=== PATIENT | male | born 1955 | race Caucasian/White ===

== ENCOUNTER → 2022-07-14 | Outpatient (CLI) | payer MEDICARE ==
[~2022-07-14] MED LIST: REGADENOSON 0.4 MG/5 ML SYRINGE IV ONE
--- NOTE | 2022-07-14 17:07 | NM ---
EXAMINATION TYPE: NM stress lexiscan cardiolite DATE OF EXAM: 07/14/2022 COMPARISON: NONE HISTORY: Atrioventricular block TECHNIQUE: After the intravenous administration of 9.9 mCi Tc 99m Sestamibi - Cardiolite resting SPE CT images acquired 55 minutes post injection. At peak stress 25.6 mCi Tc 99m Sestamibi - Stress images obtained 40 minutes post injection The patient was stressed on the treadmill. FINDINGS: There may be a small fixed defect along the inferior lateral wall adjacent to the cardiac apex. This correlates with the polar maps. Polar maps suggest a small defect within the septal wall at the cardiac apex. This is better visualiz ed on the SPECT stress images. Reversibility is not identified on the polar maps. Polar maps suggest larger defect at this region on the resting images which is not supported by the SPECT imaging. Wall motion is normal Ejection fraction is calculated to be 51 %. IMPRESSION: 1. Small prior infarct may be along the inferolateral wall near the cardiac apex. 2. SPECT imaging suggests some stress-induced ischemic change at the septal wall near the cardiac ape x although polar maps suggest a fixed defect. Correlate with patient's symptoms and EKG changes.
== END | disposition home or self-care (01) ==
LOC: RADNMMAIN 07:27
PROVIDERS: ATTEND Family Medicine
DX: I44.0 Atrioventricular block, first degree (principal)
CPT/HCPCS: 93017; 78452; A9500

== ENCOUNTER 2024-08-26 06:17 | Day surgery (SDC) | payer MEDICARE ==
[~2024-08-26 06:17] MED LIST changes: +LACTATED RINGERS 1,000 ML IV SCH; -REGADENOSON 0.4 MG/5 ML SYRINGE IV ONE
[2024-08-26] MEDS: IV FLUID CONTINUATION 1,000 ML IV ONE (07:26)
[2024-08-26 07:31] VITALS: TEMP 98.2
[2024-08-26 07:35] LABS: Glucose,Whole Blood 149 mg/dL (70-110)
[2024-08-26] MEDS ORDERED: PROPOFOL 10 MG/ML 20 ML VIAL IV ONE (07:48)
[2024-08-26] MEDS ORDERED: SUCCINYLCHOLINE CHLORIDE 200 MG/10 ML VIAL IV ONE (07:48)
[2024-08-26] MEDS: ALBUTEROL NEBULIZED 2.5 MG/3 ML INHALATION STA (08:23)
--- NOTE | 2024-08-26 08:56 | XR ---
EXAMINATION TYPE: XR chest 1V portable DATE OF EXAM: 08/26/2024 8:39 AM COMPARISON: None. CLINICAL INDICATION: Male, 69 years old with history of ASPIRATION, TECHNIQUE: XR chest 1V portable view(s) obtained. FINDINGS: The heart size is normal. The pulmonary vasculature is normal. The lungs are clear. IMPRESSION: 1. No acute pulmonary process. [facility], , 08/26/2024 8:54 AM
[2024-08-26] MEDS: ONDANSETRON 4 MG/2 ML VIAL IVP STA (09:01)
[2024-08-26] MEDS: BUDESONIDE 1 MG/2 ML NEBU INHALATION STA (10:36)
[2024-08-26] MEDS: IPRATROPIUM-ALBUTEROL 3 ML NEB INHALATION STA (10:36)
[2024-08-26 11:34] VITALS: BP 104/77; PULSE 97; RESP 18
--- NOTE | 2024-08-26 13:11 | P.OP ---
Date of Procedure: 08/26/24 Preoperative Diagnosis: Screening Colonoscopy Postoperative Diagnosis: Colon Polyp Procedure(s) Performed: Colonoscopy Anesthesia: other (Sedation) Surgeon: Ash Santos Pathology: none sent Condition: stable Disposition: PACU Description of Procedure: After informed consent was obtained, the patient was placed in the left lateral position adequate sedation was given by anesthesia. Monitoring was provided throughout the entire procedure. Digital rectal exam was performed revealing normal sphincter tone and no external hemorrhoids. The colonoscope was inserted into rectum and advanced under direct visualization, without difficulty, to the cecum, the appendiceal orifice, and the ileocecal valve were identified. The quality of the preparation was good. The colonoscope was then withdrawn while carefully examining the mucosa. The colonic mucosa appeared normal with normal vascularity and haustral markings. No masses, AVM/s or diverticula were seen. There was a right sided colon polyp seen. Prior to being able to perfom polypectomy, patient started vomiting and anesthesia request I abort the procedure. The scope was completely withdrawn. Patient will need a repeat colonoscopy.
== END 2024-08-26 11:40 | disposition home or self-care (01) ==
LOC: ORWHC2ENDO 06:17 → 2SICU 08:08 → ORWHC2ENDO 08:08
PROVIDERS: ATTEND Surgery
DX: Z12.11 Encounter for screening for malignant neoplasm of colon (principal); K63.5 Polyp of colon; K91.81 Other intraoperative complications of digestive system; R11.10 Vomiting, unspecified; I10 Essential (primary) hypertension; E78.5 Hyperlipidemia, unspecified; J44.9 Chronic obstructive pulmonary disease, unspecified; E11.9 Type 2 diabetes mellitus without complications; M19.90 Unspecified osteoarthritis, unspecified site; F32.A Depression, unspecified; K21.9 Gastro-esophageal reflux disease without esophagitis; Z79.899 Other long term (current) drug therapy; Z79.85 Long-term (current) use of injectable non-insulin antidiabetic drugs; Z79.82 Long term (current) use of aspirin
CPT/HCPCS: 94640; 94760; 71045; J0330; J2405; J2704; G0121; 45378

== ENCOUNTER 2024-08-30 14:00 | Inpatient (IN) | payer MEDICARE ==
--- NOTE | 2024-08-30 14:37 | ED ---
Abdominal Pain HPI - General Chief Complaint: Abdominal Pain Stated Complaint: Perforated bowel Time Seen by Provider: 08/30/24 14:05 Source: EMS Mode of arrival: EMS Limitations: no limitations - History of Present Illness Initial Comments: 69-year-old male presents emergency department as a transfer from [facility]. Patient had a colonoscopy on August 26. States that soon after the colonoscopy he started having abdominal pain. He has had intermittent nausea with vomiting. Has not held down much food besides some soup. He does admit to liquid stools. He did have bowel movement today. He went into [facility]. Laboratory studies revealed a white count of 19,000. CT was performed which demonstrated free intraperitoneal air with diffusely dilated loops of small bowel with air-fluid levels and possible transition point within the right lower quadrant of the abdomen. Patient was given 2 mg of morphine, dose of Zosyn and transferred to our facility as his surgeon is here - Dr. Santos. - Related Data Home Medications Medication Instructions Recorded Confirmed Albuterol Sulfate [Albuterol 2 puff INHALATION RT-Q4H PRN 08/22/24 08/30/24 Sulfate Hfa] Aspirin [Adult Low Dose Aspirin EC] 81 mg PO DAILY 08/22/24 08/30/24 Atorvastatin [Lipitor] 40 mg PO DAILY 08/22/24 08/30/24 Ergocalciferol [Vitamin D2 (1250 1,250 mcg PO WEEKLY 08/22/24 08/30/24 Mcg = 12126 Iu)] Escitalopram [Lexapro] 10 mg PO DAILY 08/22/24 08/30/24 Esomeprazole Magnesium [NexIUM] 20 mg PO DAILY 08/22/24 08/30/24 Fluticasone Propion/Salmeterol 1 puff INHALATION RT-DAILY 08/22/24 08/30/24 [Wixela 250-50 Inhub] Metoprolol Tartrate [Lopressor] 25 mg PO BID 08/22/24 08/30/24 Montelukast [Singulair] 10 mg PO DAILY 08/22/24 08/30/24 Tiotropium 2.5 Mcg/Puff [Spiriva 2 puff INHALATION RT-DAILY 08/22/24 08/30/24 Respimat 2.5 Mcg] Tirzepatide [Mounjaro] 2.5 mg SQ WEEKLY 08/22/24 08/30/24 allopurinoL 300 mg PO DAILY 08/22/24 08/30/24 lisinopriL [Zestril] 20 mg PO DAILY 08/22/24 08/30/24 Previous Rx's Medication Instructions Recorded Amoxic-Pot Clav 875-125Mg 1 tab PO Q12HR 10 Days #20 tab 09/06/24 [Augmentin 875-125] Fluticasone Propionate 110 Mcg 1 puff INHALATION BID #0 09/06/24 [Flovent 110 Mcg Inhaler] HYDROcodone/APAP 5-325MG [[place] 1 tab PO Q6HR PRN 3 Days #12 tab 09/06/24 5-325] Allergies Allergy/AdvReac Type Severity Reaction Status Date / Time No Known Allergies Allergy Verified 08/30/24 20:45 Review of Systems ROS Statement: Those systems with pertinent positive or pertinent negative responses have been documented in the HPI. ROS Other: All systems not noted in ROS Statement are negative. Past Medical History Past Medical History: Asthma, COPD, Diabetes Mellitus, GERD/Reflux, GI Bleed, Hyperlipidemia, Hypertension, Osteoarthritis (OA) Additional Past Medical History / Comment(s): Perforated bowel Aug 2024, History of Any Multi-Drug Resistant Organisms: None Reported Past Surgical History: Adenoidectomy, Tonsillectomy Additional Past Surgical History / Comment(s): colonoscopy; wisdom teeth removed Past Anesthesia/Blood Transfusion Reactions: No Reported Reaction Additional Past Anesthesia/Blood Transfusion Reaction / Comment(s): no hx blood transfusion Past Psychological History: Depression Smoking Status: Former smoker Past Alcohol Use History: Occasional Past Drug Use History: None Reported General Exam Limitations: no limitations General appearance: alert, in no apparent distress Head exam: Present: atraumatic, normocephalic, normal inspection Eye exam: Present: normal appearance, PERRL, EOMI. Absent: scleral icterus, conjunctival injection, periorbital swelling ENT exam: Present: normal exam, mucous membranes moist Neck exam: Present: normal inspection. Absent: tenderness, meningismus, lympha denopathy Respiratory exam: Present: normal lung sounds bilaterally. Absent: respiratory distress, wheezes, rales, rhonchi, stridor Cardiovascular Exam: Present: regular rate, normal rhythm, normal heart sounds. Absent: systolic murmur, diastolic murmur, rubs, gallop, clicks GI/Abdominal exam: Present: soft, tenderness (rlq pain. abdomen is not peritoneal), normal bowel sounds. Absent: distended, guarding, rebound, rigid Extremities exam: Present: normal inspection, full ROM, normal capillary refill. Absent: tenderness, pedal edema, joint swelling, calf tenderness Back exam: Present: normal inspection Neurological exam: Present: alert, oriented X3, CN II-XII intact Psychiatric exam: Present: normal affect, normal mood Skin exam: Present: warm, dry, intact, normal color. Absent: rash Course Vital Signs 08/30/24 08/30/24 08/30/24 14:02 14:06 15:00 Temperature 98.6 F Pulse Rate 101 H 110 H 107 H Pulse Rate [ Pulse Oximetery ] Respiratory 18 18 8 L Rate Blood Pressure 110/85 122/80 Blood Pressure [Right Arm] O2 Sat by Pulse 92 L 88 L 94 L Oximetry 08/30/24 08/30/24 16:00 16:14 Temperature 97.1 F L Pulse Rate Pulse Rate [ 107 H Pulse Oximetery ] Respiratory 31 H 18 Rate Blood Pressure 109/86 Blood Pressure 112/76 [Right Arm] O2 Sat by Pulse 92 L Oximetry - Reevaluation(s) Reevaluation #1: 08/30/24 14:[address] Pruitt - aware of patients condition and diagnosis Medical Decision Making - Medical Decision Making Was pt. sent in by a medical professional or institution (, PA, SCREEN PRINTING EQUIPMENT SETTER, urgent care, hospital, or skilled nursing...) When possible be specific @ -Sent from [facility] Did you speak to anyone other than the patient for history (EMS, parent, family, police, friend...)? What history was obtained from this source @ -Spoke with physician from the [facility] Did you review nursing and triage notes (agree or disagree)? Why? @ -I reviewed and agree with nursing and triage notes Were old charts reviewed (outside hosp., previous admission, EMS record, old EKG, old radiological studies, urgent care reports/EKG's, skilled nursing records)? Report findings @ -I reviewed the chart from [facility] today Differential Diagnosis (chest pain, altered mental status, abdominal pain women, abdominal pain men, vaginal bleeding, weakness, fever, dyspnea, syncope, headache, dizziness, GI bleed, back pain, seizure, CVA, palpatations, mental health, musculoskeletal)? @ -Differential Abdominal Pain Men: Appendicitis, cholecystitis, diverticulosis, ischemic bowel, pancreatitis, hepatitis, UTI, gastroenteritis, AAA, incarcerated hernia, bowel obstruction, constipation, inflammatory bowel, hepatitis, peptic ulcer disease, splenic infarction, perforated viscus, testicular torsion, this is not meant to be an a ll-inclusive list EKG interpreted by me (3pts min.). @ -Not done X-rays interpreted by me (1pt min.). @ -None done CT interpreted by me (1pt min.). @ -None done U/S interpreted by me (1pt. min.). @ -None done What testing was considered but not performed or refused? (CT, X-rays, U/S, labs)? Why? @ -Chest x-ray and abdominal CT however this was already performed What meds were considered but not given or refused? Why? @ -None Did you discuss the management of the patient with other professionals (professionals i.e. , PA, SCREEN PRINTING EQUIPMENT SETTER, lab, RT, psych nurse, psychotherapist social worker, automotive porter, teacher, community development officer, case advocate)? Give summary @ -Spoke with Dr. Pruitt Was smoking cessation discussed for >3mins.? @ -No Was critical care preformed (if so, how long)? @ -35 minutes for management of pneumoperitoneum which requires immediate OR Were there social determinants of health that impacted care today? How? (Homelessness, low income, unemployed, alcoholism, drug addiction, transportation, low edu. Level, literacy, decrease access to med. care, senior living, rehab)? @ -No Was there de-escalation of care discussed even if they declined (Discuss DNR or withdrawal of care, Hospice)? DNR status @ -No What co-morbidities impacted this encounter? (DM, HTN, Smoking, COPD, CAD, Cancer, CVA, ARF, Chemo, Hep., AIDS, mental health diagnosis, sleep apnea, morbid obesity)? @ -None Was patient admitted / discharged? Hospital course, mention meds given and route, prescriptions, significant lab abnormalities, going to OR and other pertinent info. @ -Upon arrival patient seen and evaluated in room 7. Thorough history and physical exam was performed. I did call and speak with Dr. Pruitt. They do accept the admission. Patient continues to be n.p.o. and will be taken to the OR shortly. Undiagnosed new problem with uncertain prognosis? @ -No Drug Therapy requiring intensive monitoring for toxicity (Heparin, Nitro, Insulin, Cardizem)? @ -No Were any procedures done? @ -No Diagnosis/symptom? @ -Acute abdominal pain, acute pneumoperitoneum Acute, or Chronic, or Acute on Chronic? @ -Acute Uncomplicated (without systemic symptoms) or Complicated (systemic symptoms)? @ -Complicated Side effects of treatment? @ -No Exacerbation, Progression, or Severe Exacerbation? @ -No Poses a threat to life or bodily function? How? (Chest pain, [place], [place], pneumonia, PE, COPD, DKA, ARF, appy, cholecystitis, CVA, Diverticulitis, Homicidal, Suicidal, threat to staff... and all critical care pts) @ -Yes as patient has pneumoperitoneum - Lab Data Result diagrams: 09/06/24 06:09 09/06/24 06:09 Disposition Clinical Impression: Abdominal pain, Pneumoperitoneum Disposition: ADMITTED IP TO THIS [facility] Condition: Stable Is patient prescribed a controlled substance at d/c from ED?: No Time of Disposition: 14:40 Decision to Admit Reason: Admit from EC Decision Date: 08/30/24 Decision Time: 14:40
[2024-08-30] MEDS ORDERED: NALOXONE 0.4 MG/ML 1 ML VIAL IV PRN ×2 (14:40→19:34)
[2024-08-30] MEDS: SODIUM CHLORIDE 0.9% 1,000 ML IV SCH (15:20)
[2024-08-30] MEDS: PIPERACILLIN-TAZOBACTAM 3.375 GM in SODIUM CHLORIDE 0.9% 100 ML IVPB SCH (15:20)
[2024-08-30] MEDS: MORPHINE SULFATE 2 MG/ML SYRINGE IVP ONE (15:21)
[2024-08-30] MEDS: MORPHINE SULFATE 4 MG/ML SYRINGE IV PRN (15:37)
[2024-08-30] MEDS: IV FLUID CONTINUATION 1,000 ML IV ONE ×2 (16:14→16:29)
[2024-08-30] MEDS: ONDANSETRON 4 MG/2 ML VIAL IVP STA (16:31)
[2024-08-30 16:36] LABS: ALT 13 U/L (4-49); African American GFR (CKD) 33 (>60 ml/min/1.73 sqM); Anion Gap 12 mmol/L; Blood Urea Nitrogen 60 mg/dL (9-20); Calcium 8.6 mg/dL (8.4-10.2); Carbon Dioxide 22 mmol/L (22-30); Chloride 103 mmol/L (98-107); Glucose 138 mg/dL (74-99); Non-African American GFR(CKD) 28 (>60 ml/min/1.73 sqM); Sodium 137 mmol/L (137-145); Total Bilirubin 1.4 mg/dL (0.2-1.3)
[2024-08-30 16:38] LABS: Basophils % (A) 0 %; Eosinophils % (A) 0 %; HCT 48.8 % (39.0-53.0); HGB 16.7 gm/dL (13.0-17.5); Lymphocytes # (A) 1.3 k/uL (1.0-4.8); Lymphocytes % (A) 7 %; MCH 32.4 pg (25.0-35.0); MCHC 34.1 g/dL (31.0-37.0); MCV 94.8 fL (80.0-100.0); Mean Platelet Volume 10.5; Monocytes # (A) 0.6 k/uL (0-1.0); Monocytes % (A) 4 %; Neutrophils # (A) 15.8 k/uL (1.3-7.7); Neutrophils % (A) 88 %; Platelet Count 184 k/uL (150-450); RBC 5.15 m/uL (4.30-5.90); RDW 14.1 % (11.5-15.5); WBC 17.9 k/uL (3.8-10.6)
[2024-08-30 16:44] LABS: AST 23 U/L (17-59); Albumin 3.7 g/dL (3.5-5.0); Alkaline Phosphatase 77 U/L (38-126); Potassium 4.5 mmol/L (3.5-5.1); Total Protein 7.1 g/dL (6.3-8.2)
[2024-08-30 16:48] LABS: INR 1.2 (<1.2); Partial Thromboplastin Time 26.3 sec (22.0-30.0); Prothrombin Time 12.8 sec (10.0-12.5)
[2024-08-30 16:51] LABS: ALT 14 U/L (4-49); AST 18 U/L (17-59); African American GFR (CKD) 33 (>60 ml/min/1.73 sqM); Albumin 3.6 g/dL (3.5-5.0); Albumin/Globulin Ratio 1.1; Alkaline Phosphatase 81 U/L (38-126); Anion Gap 11 mmol/L; Blood Urea Nitrogen 62 mg/dL (9-20); Calcium 8.7 mg/dL (8.4-10.2); Carbon Dioxide 22 mmol/L (22-30); Chloride 105 mmol/L (98-107); Globulin 3.3 g/dL; Glucose 140 mg/dL (74-99); Non-African American GFR(CKD) 28 (>60 ml/min/1.73 sqM); Potassium 4.2 mmol/L (3.5-5.1); Sodium 138 mmol/L (137-145); Total Bilirubin 1.2 mg/dL (0.2-1.3); Total Protein 6.9 g/dL (6.3-8.2)
[2024-08-30] MEDS ORDERED: ROCURONIUM 10 MG/ML (5 ML VIAL) IV ONE (17:24)
[2024-08-30] MEDS ORDERED: PHENYLEPHRINE 10 MG/ML VIAL ONE (17:24)
[2024-08-30] MEDS ORDERED: fentaNYL (PF) 50 MCG/ML 2 ML AMP ONE (17:24)
[2024-08-30] MEDS ORDERED: PROPOFOL 10 MG/ML 20 ML VIAL IV ONE (17:24)
[2024-08-30] MEDS ORDERED: SUCCINYLCHOLINE CHLORIDE 200 MG/10 ML VIAL IV ONE (17:24)
[2024-08-30] MEDS ORDERED: LIDOCAINE 1% INJ 10MG/ML (20 ML MDV) ONE (17:24)
[2024-08-30] MEDS: LACTATED RINGERS 1,000 ML IV ONE ×2 (17:56→18:55)
[2024-08-30 19:30] LABS: Glucose,Whole Blood 136 mg/dL (70-110)
[2024-08-30] MEDS ORDERED: Magnesium Replacement Protocol 1 EACH MISC MISCELLANE PRN (19:34)
[2024-08-30] MEDS ORDERED: Potassium Replacement Protocol 1 EACH MISC MISCELLANE PRN (19:34)
[2024-08-30] MEDS ORDERED: IPRATROPIUM-ALBUTEROL 3 ML NEB INHALATION PRN (19:34)
--- NOTE | 2024-08-30 20:00 | XR ---
EXAMINATION TYPE: XR chest 1V portable DATE OF EXAM: 08/30/2024 7:56 PM COMPARISON: 08/26/2024 CLINICAL INDICATION: Male, 69 years old with history of Tube placement, TECHNIQUE: XR chest 1V portable view(s) obtained. FINDINGS: The heart size is normal. The pulmonary vasculature is normal. Right lower lobe infiltrate has developed. Endotracheal tube tip is 5 cm above the codi. Nasogastric tube transverses the thorax. IMPRESSION: 1. Developing right lower lobe infiltrate. 2. Lines and catheters discussed above [facility], , 08/30/2024 7:58 PM
[2024-08-30 20:14] LABS: Basophils % (A) 0 %; Eosinophils # (A) 0.1 k/uL (0-0.7); Eosinophils % (A) 1 %; HCT 54.6 % (39.0-53.0); HGB 17.6 gm/dL (13.0-17.5); Hypochromasia Slight; Lymphocytes # (A) 1.4 k/uL (1.0-4.8); Lymphocytes % (A) 13 %; MCH 31.3 pg (25.0-35.0); MCHC 32.2 g/dL (31.0-37.0); MCV 97.1 fL (80.0-100.0); Mean Platelet Volume 9.3; Monocytes # (A) 0.3 k/uL (0-1.0); Monocytes % (A) 3 %; Neutrophils # (A) 9.3 k/uL (1.3-7.7); Neutrophils % (A) 83 %; Platelet Count 203 k/uL (150-450); RBC 5.62 m/uL (4.30-5.90); RDW 14.2 % (11.5-15.5); WBC 11.2 k/uL (3.8-10.6)
[2024-08-30 20:16] LABS: ABG Base Excess -5.3 mmol/L; ABG HCO3 22 mmol/L (21-25); ABG Oxygen Saturation 97.5 % (94-97); ABG PCO2 47 mmHg (35-45); ABG PH 7.27 (7.35-7.45); ABG PO2 112 mmHg (83-108); ABG TCO2 23 mmol/L (19-24); Allen Test Performed? Yes
[2024-08-30 20:23] LABS: African American GFR (CKD) 37 (>60 ml/min/1.73 sqM); Anion Gap 11 mmol/L; Blood Urea Nitrogen 59 mg/dL (9-20); Calcium 7.9 mg/dL (8.4-10.2); Carbon Dioxide 16 mmol/L (22-30); Chloride 111 mmol/L (98-107); Glucose 150 mg/dL (74-99); Magnesium 1.7 mg/dL (1.6-2.3); Non-African American GFR(CKD) 32 (>60 ml/min/1.73 sqM); Potassium 3.9 mmol/L (3.5-5.1); Sodium 138 mmol/L (137-145)
[2024-08-30] MEDS: CHLORHEXIDINE GLUCONATE 15 ML CUP MUCOUS MEM SCH (20:38)
[2024-08-30] MEDS: LACTATED RINGERS 1,000 ML IV SCH (20:38)
[2024-08-31] MEDS: metroNIDAZOLE-NS PMX 500 MG in SALINE 1 100ML.BAG IVPB SCH (00:05)
[2024-08-31 00:08] LABS: Glucose,Whole Blood 133 mg/dL (70-110)
--- NOTE | 2024-08-31 03:35 | P.PN ---
Progress Note - Text Progress Note Date: 08/31/24 Patient Seen and Examined. He is intubated and sedated. He is not requiring any pressor support. He is making good urine. VSS General-Intubated and Sedated CVS-RRR Lungs-Mechanical Breath Sounds Abdomen-Abthera Wound Vac In Place, Abdomen is soft 69 year old male POD#1 Exploratory Laparotomy, Ileocecectomy with Bowel left in Discontinuity for Cecal Perforation and Ischemic Bowel - Will Plan to Return to OR for [place]ook Laparotomy Saturday 09/01 - NPO - IV fluids - Zosyn - Scott Catheter with Strict I/O's - Abthera Wound Vac - ICU Care Ash Santos [facility] [phone]
[2024-08-31 04:57] LABS: ABG HCO3 23 mmol/L (21-25); ABG Oxygen Saturation 96.7 % (94-97); ABG PCO2 38 mmHg (35-45); ABG PH 7.39 (7.35-7.45); ABG PO2 86 mmHg (83-108); ABG TCO2 24 mmol/L (19-24); Allen Test Performed? Yes
[2024-08-31 05:44] LABS: Glucose,Whole Blood 149 mg/dL (70-110)
[2024-08-31 05:50] LABS: Basophils % (A) 0 %; Eosinophils % (A) 0 %; HCT 49.7 % (39.0-53.0); HGB 16.2 gm/dL (13.0-17.5); Lymphocytes # (A) 0.8 k/uL (1.0-4.8); Lymphocytes % (A) 7 %; MCH 31.1 pg (25.0-35.0); MCHC 32.7 g/dL (31.0-37.0); MCV 95.1 fL (80.0-100.0); Mean Platelet Volume 9.8; Monocytes # (A) 0.4 k/uL (0-1.0); Monocytes % (A) 4 %; Neutrophils # (A) 10.7 k/uL (1.3-7.7); Neutrophils % (A) 88 %; Platelet Count 217 k/uL (150-450); RBC 5.23 m/uL (4.30-5.90); RDW 14.8 % (11.5-15.5); WBC 12.1 k/uL (3.8-10.6)
[2024-08-31 06:28] LABS: African American GFR (CKD) 37 (>60 ml/min/1.73 sqM); Anion Gap 10 mmol/L; Blood Urea Nitrogen 60 mg/dL (9-20); Calcium 8.1 mg/dL (8.4-10.2); Carbon Dioxide 22 mmol/L (22-30); Chloride 106 mmol/L (98-107); Glucose 160 mg/dL (74-99); Non-African American GFR(CKD) 32 (>60 ml/min/1.73 sqM); Potassium 4.3 mmol/L (3.5-5.1); Sodium 138 mmol/L (137-145)
--- NOTE | 2024-08-31 08:07 | XR ---
EXAMINATION TYPE: XR chest 1V portable DATE OF EXAM: 08/31/2024 5:14 AM COMPARISON: 08/30/2024 CLINICAL INDICATION: Male, 69 years old with history of Tube placement, TECHNIQUE: XR chest 1V portable view(s) obtained. FINDINGS: The heart size is normal. The pulmonary vasculature is normal. Minimal infiltrate may be at the right diaphragm. This is improved from comparison. Endotracheal tube tip 6 cm above the codi. Nasogastric tube transverses the thorax IMPRESSION: 1. Minimal improving right lower lobe infiltrate [facility], , 08/31/2024 8:05 AM
[2024-08-31] MEDS: FUROSEMIDE 10 MG/ML 4 ML VIAL IV STA (08:34)
[2024-08-31] MEDS: PANTOPRAZOLE 40 MG/10 ML VIAL IVP SCH (09:04)
[2024-08-31 11:42] LABS: Glucose,Whole Blood 159 mg/dL (70-110)
--- NOTE | 2024-08-31 11:42 | OP ---
OPERATIVE REPORT DATE OF SERVICE : PROCEDURE PERFORMED: Placement of a right radial arterial line. PREOPERATIVE DIAGNOSIS: Acute surgical abdomen. POSTOPERATIVE DIAGNOSIS: Acute surgical abdomen. ANESTHESIA USED: None deployed. ROUGH CARPENTER: Tate Antonio MD/Internal Medicine Resident. DESCRIPTION OF PROCEDURE: The patient was placed in the supine position, the right wrist was prepared in a sterile fashion. Drapes were applied. The right radial artery was palpated, cannulated, a guidewire was placed. A Cook's catheter inserted over the guidewire, and the guidewire was removed. Good blood flow, good waveform, no complications. Line was secured using 3.0 silk sutures. MMODL / IJN: [id number] /
--- NOTE | 2024-08-31 12:42 | P.CNPUL ---
History of Present Illness Consult date: 08/31/24 Requesting physician: Ash Santos Reason for consult: other Chief complaint: Abdominal pain History of present illness: This is a 69-year-old white male with a known history of multiple medical problems including GERD, dyslipidemia hypertension and degenerative joint disease, patient had a recent screening colonoscopy on 08/26/2024 which was reported as normal except for a right colonic polyp that could not be removed mostly because the patient started having the nausea and vomiting during the procedure which had to be aborted and the surgeon felt that the procedure should be done again at a later date. Patient was discharged home, and he presented yesterday to [facility] emergency room complaining of abdominal pain nausea and vomiting. Patient could not hold any food down. He had mostly liquid stools. Patient was noted to have leukocytosis, CT of the abdomen pelvis showed free intraperitoneal air with diffusely dilated loops of small bowel with air-fluid levels consistent with acute pneumoperitoneum/acute surgical abdomen. Patient was transferred to [facility], and he was seen by surgery on consultation. Underwent exploratory laparotomy right hemicolectomy and the plan is to go back to have another look tomorrow. Patient was admitted to the ICU on mechanical ventilation last night, and I was asked to see him in consultation. He is now on assist-control rate of 20 tidal volume 500 FiO2 was 70% and PEEP was 5 however after reviewing ABG I cut down FiO2 to 60% and PEEP increased to 8. ABG on 70% showed a pO2 of 86 pCO2 38 pH of 7.39. Reviewing the chart, there is no surgical operative report on this patient, but based on the note/progress note, patient had cecal perforation with ischemia and he underwent exploratory laparotomy, ileocecectomy with bowel left in discontinue OT, and a wound VAC was placed, the plan is to have another look tomorrow into the abdominal cavity. Patient is on LR 125 cc/h he is also on propofol at 40 mcg/kg/min he had a temp of 102.7 last night, on antibiotics in the form of Flagyl and Zosyn. Chest x-ray showed mild pulmonary edema and the patient received Lasix 40 mg IV push x 1.WBC count today is 12.1 hemoglobin is 16.2, basic metabolic profile is normal however BUN is 60 and creatinine 2.07 baseline creatinine on admission was 2.30. Review of Systems ROS unobtainable: due to endotracheal tube Past Medical History Past Medical History: Asthma, COPD, Diabetes Mellitus, GERD/Reflux, GI Bleed, Hyperlipidemia, Hypertension, Osteoarthritis (OA) Additional Past Medical History / Comment(s): Perforated bowel Aug 2024, History of Any Multi-Drug Resistant Organisms: None Reported Past Surgical History: Adenoidectomy, Tonsillectomy Additional Past Surgical History / Comment(s): colonoscopy; wisdom teeth removed Past Anesthesia/Blood Transfusion Reactions: No Reported Reaction Additional Past Anesthesia/Blood Transfusion Reaction / Comment(s): no hx blood transfusion Past Psychological History: Depression Additional Psychological History / Comment(s): 2 yrs ago Smoking Status: Former smoker Past Alcohol Use History: Occasional Additional Past Alcohol Use History / Comment(s): smoked about 1 1/2-2 ppd x 50 yrs - quit 5 yrs ago; drinks about 3 beers once a week; pt states used to drink daily- about a case (24) weekly; advised no alcohol 24 hrs prior to proc. Past Drug Use History: None Reported Medications and Allergies Home Medications Medication Instructions Recorded Confirmed Type Albuterol Sulfate [Albuterol 2 puff INHALATION RT-Q4H PRN 08/22/24 08/30/24 History Sulfate Hfa] Aspirin [Adult Low Dose Aspirin EC] 81 mg PO DAILY 08/22/24 08/30/24 History Atorvastatin [Lipitor] 40 mg PO DAILY 08/22/24 08/30/24 History Ergocalciferol [Vitamin D2 (1250 1,250 mcg PO WEEKLY 08/22/24 08/30/24 History Mcg = 80845 Iu)] Escitalopram [Lexapro] 10 mg PO DAILY 08/22/24 08/30/24 History Esomeprazole Magnesium [NexIUM] 20 mg PO DAILY 08/22/24 08/30/24 History Fluticasone Propion/Salmeterol 1 puff INHALATION RT-DAILY 08/22/24 08/30/24 History [Wixela 250-50 Inhub] Fluticasone Propionate 110 Mcg 1 puff INHALATION DIRECTED 08/22/24 08/30/24 History [Flovent 110 Mcg Inhaler] Metoprolol Tartrate [Lopressor] 25 mg PO BID 08/22/24 08/30/24 History Montelukast [Singulair] 10 mg PO DAILY 08/22/24 08/30/24 History OXcarbazepine 300 mg PO HS 08/22/24 08/30/24 History Tiotropium 2.5 Mcg/Puff [Spiriva 2 puff INHALATION RT-DAILY 08/22/24 08/30/24 History Respimat 2.5 Mcg] Tirzepatide [Mounjaro] 2.5 mg SQ WEEKLY 08/22/24 08/30/24 History allopurinoL 300 mg PO DAILY 08/22/24 08/30/24 History lisinopriL [Zestril] 20 mg PO DAILY 08/22/24 08/30/24 History Allergies Allergy/AdvReac Type Severity Reaction Status Date / Time No Known Allergies Allergy Verified 08/30/24 20:45 Physical Exam Vitals: Vital Signs Temp Pulse Pulse Pulse Resp BP BP 08/31/24 12:00 105 H 105 H 20 97/77 08/31/24 11:12 08/31/24 11:00 103 H 20 103/76 08/31/24 10:00 102 H 20 89/72 08/31/24 09:00 101 H 20 113/65 08/31/24 08:32 08/31/24 08:00 99.3 F 100 100 20 106/76 08/31/24 07:54 08/31/24 07:00 101 H 20 104/66 08/31/24 06:00 100 20 104/71 08/31/24 05:00 98 20 93/66 08/31/24 04:19 08/31/24 04:00 98 20 97/67 08/31/24 03:34 08/31/24 03:00 97 20 92/64 08/31/24 02:00 100 20 97/72 08/31/24 01:00 99 20 108/79 08/31/24 00:25 98 20 100/73 08/31/24 00:16 08/31/24 00:00 98.8 F 98 20 100/76 08/30/24 23:00 98 20 97/79 08/30/24 22:00 98 20 102/81 08/30/24 21:00 102 H 22 135/89 08/30/24 20:31 08/30/24 20:27 08/30/24 20:00 100.2 F H 103 H 20 133/91 08/30/24 19:39 08/30/24 19:30 08/30/24 17:00 106/84 08/30/24 16:14 97.1 F L 107 H 18 112/76 08/30/24 16:00 31 H 109/86 08/30/24 15:00 107 H 8 L 122/80 08/30/24 14:06 110 H 18 08/30/24 14:02 98.6 F 101 H 18 110/85 Pulse Ox FiO2 08/31/24 12:00 95 50 08/31/24 11:12 50 08/31/24 11:00 08/31/24 10:00 08/31/24 09:00 94 L 60 08/31/24 08:32 60 08/31/24 08:00 96 70 08/31/24 07:54 70 08/31/24 07:00 96 08/31/24 06:00 95 08/31/24 05:00 95 08/31/24 04:19 70 08/31/24 04:00 96 70 08/31/24 03:34 70 08/31/24 03:00 96 08/31/24 02:00 95 08/31/24 01:00 95 08/31/24 00:25 94 L 08/31/24 00:16 70 08/31/24 00:00 96 70 08/30/24 23:00 95 08/30/24 22:00 94 L 08/30/24 21:00 94 L 70 08/30/24 20:31 70 08/30/24 20:27 70 08/30/24 20:00 97 80 08/30/24 19:39 80 08/30/24 19:30 97 08/30/24 17:00 08/30/24 16:14 92 L 08/30/24 16:00 08/30/24 15:00 94 L 08/30/24 14:06 88 L 08/30/24 14:02 92 L Intake and Output 08/30/24 08/31/24 08/31/24 22:59 06:59 14:59 Intake Total 3749.025 2221.375 635.794 Output Total 889 083 4856 Balance 2939.527 6803.375 -414.206 Intake: IV 1825 1600 534 Lactated Ringers 1,000 ml 125 1000 425 @ 75 mls/hr IV .[id number] MARII Rx#:[id number] Pressure bag 9 metroNIDAZOLE-NS PMX 500 600 100 mg In Saline 1 100ml.bag @ 100 mls/hr IVPB Q8HR MARII Rx#:[id number] Intake, IV Titration 9.724 259.375 101.794 Amount propofoL 1,000 mg In 9.724 259.375 101.794 Empty Bag 1 bag @ 15 MCG/ KG/MIN 10.002 mls/hr IV . Q10H MARII Rx#:[id number] Output: Drainage 400 Abdomen 400 Urine 130 305 650 Estimated Blood Loss 125 Other: Voiding Method Indwelling Catheter Indwelling Catheter Weight 111.13 kg 107.9 kg ABP, PAP, CO, CI - Last 8 Hours Arterial Blood Pressure 89/57 Arterial Blood Pressure 98/64 Arterial Blood Pressure 108/68 General: Revealed a 69-year-old white male intubated mechanically ventilated Head: Atraumatic, normocephalic, endotracheal tube and orogastric tube are intact. Skin: Skin is warm and dry and no rashes or lesions are noted. Eye: Pupils are equal, round and reactive to light Ears, nose, mouth and throat: There are moist mucous membranes and no oral lesions. Neck: The neck is supple, there is no tenderness or JVD. Cardiovascular: Distant S1-S2, no S3 gallop. Respiratory: Symmetrical chest expansion, diminished breath sounds at the bases minimal crackles at the bases no rhonchi no wheezing Gastrointestinal: Obese, postsurgical, wound VAC is noted. Musculoskeletal: No deformities noted. Could not assess range of motion patient is sedated Neurological: Could not assess, patient is sedated, on propofol Psychiatric: Could not assess Results - Laboratory Findings CBC and BMP: 08/31/24 05:11 08/31/24 05:11 ABG ABG pH 7.39 (7.35-7.45) 08/31/24 05:10 ABG pCO2 38 mmHg (35-45) 08/31/24 05:10 ABG pO2 86 mmHg (83-108) 08/31/24 05:10 ABG O2 Saturation 96.7 % (94-97) 08/31/24 05:10 PT/INR, D-dimer PT 12.8 sec (10.0-12.5) H 08/30/24 16:25 INR 1.2 (<1.2) H 08/30/24 16:25 Abnormal lab findings: Abnormal Labs 08/30/24 08/30/24 08/30/24 15:34 15:34 16:25 WBC 17.9 H Hgb Hct Neutrophils # 15.8 H Lymphocytes # PT 12.8 H INR 1.2 H ABG pH ABG pCO2 ABG pO2 ABG O2 Saturation Hemoglobin Chloride Carbon Dioxide BUN 60 H Creatinine 2.29 H Glucose 138 H POC Glucose (mg/dL) Calcium Total Bilirubin 1.4 H 08/30/24 08/30/24 08/30/24 16:25 19:28 19:52 WBC 11.2 H Hgb 17.6 H Hct 54.6 H Neutrophils # 9.3 H Lymphocytes # PT INR ABG pH ABG pCO2 ABG pO2 ABG O2 Saturation Hemoglobin Chloride Carbon Dioxide BUN 62 H Creatinine 2.30 H Glucose 140 H POC Glucose (mg/dL) 136 H Calcium Total Bilirubin 08/30/24 08/30/24 08/31/24 19:52 20:15 00:07 WBC Hgb Hct Neutrophils # Lymphocytes # PT INR ABG pH 7.27 L ABG pCO2 47 H ABG pO2 112 H ABG O2 Saturation 97.5 H Hemoglobin 17.6 H Chloride 111 H Carbon Dioxide 16 L BUN 59 H Creatinine 2.08 H Glucose 150 H POC Glucose (mg/dL) 133 H Calcium 7.9 L Total Bilirubin 08/31/24 08/31/24 08/31/24 05:11 05:11 05:43 WBC 12.1 H Hgb Hct Neutrophils # 10.7 H Lymphocytes # 0.8 L PT INR ABG pH ABG pCO2 ABG pO2 ABG O2 Saturation Hemoglobin Chloride Carbon Dioxide BUN 60 H Creatinine 2.07 H Glucose 160 H POC Glucose (mg/dL) 149 H Calcium 8.1 L Total Bilirubin 08/31/24 11:40 WBC Hgb Hct Neutrophils # Lymphocytes # PT INR ABG pH ABG pCO2 ABG pO2 ABG O2 Saturation Hemoglobin Chloride Carbon Dioxide BUN Creatinine Glucose POC Glucose (mg/dL) 159 H Calcium Total Bilirubin - Diagnostic Findings Chest x-ray: image reviewed (Bibasilar atelectasis and small bilateral pleural effusions are noted.) Assessment and Plan Assessment: Impression: Status post exploratory laparotomy ileocecectomy, with bowel left in discontinue T for cecal perforation and ischemic bowel, postoperative day #1 Acute hypoxic respiratory failure secondary to above Acute pneumoperitoneum/surgical abdomen requiring surgery as noted above. Acute abdominal sepsis secondary to acute pneumoperitoneum and bowel perforation Recent colonoscopy on 08/26/2024 complicated by nausea vomiting and possible aspiration hence polypectomy could not be performed History of underlying COPD/asthma History of diabetes type 2 Benign essential hypertension Degenerative joint disease History of GERD Acute kidney injury, possible acute tubular necrosis secondary to sepsis and possibly hypotension, baseline creatinine is unknown prior to this admission to the Recommendation: Continue ventilatory support, vent settings were adjusted accordingly, no plans to wean or extubate today since patient is having another surgery tomorrow Patient to have another exploratory laparotomy tomorrow, in the meantime Continue GI DVT prophylaxis Continue hemodynamic support if necessary, for the time being patient is h emodynamically stable not requiring any pressors Continue antibiotics for his abdominal sepsis Continue IV fluids, monitor closely electrolytes and renal profile May have to eventually consider TPN on this patient once done with surgery Resume home meds However hold lisinopril monitor blood sugars and address accordingly Close monitoring of blood sugars and address accordingly use sliding scale co verage Continue bronchodilators including albuterol, DuoNeb, Symbicort. Singulair. Will try to find his baseline PFT if he had one in our institution. Medical service to address his medical issues/admission patient is primarily a patient of Dr. Najera Patient is critically ill, critical care time is over 30 minutes Time with Patient: Greater than 30
[2024-08-31] MEDS ORDERED: DEXTROSE 50% SYRINGE 50 ML IVP PRN ×2 (14:26)
[2024-08-31 17:56] LABS: Glucose,Whole Blood 122 mg/dL (70-110)
[2024-08-31] MEDS: INSULIN ASPART (NovoLOG) 100 UNIT/ML VIAL SQ SCH (19:54)
[2024-08-31 23:05] LABS: Glucose,Whole Blood 135 mg/dL (70-110)
--- NOTE | 2024-09-01 00:34 | P.OP ---
Date of Procedure: 08/30/24 Preoperative Diagnosis: free air Postoperative Diagnosis: colon perforation Procedure(s) Performed: explorator laparotomy with ielocectomy Anesthesia: LIDYA Surgeon: Jerome Du Estimated Blood Loss (ml): 150 Pathology: other (colon/ileum) Condition: stable Disposition: ICU Indications for Procedure: free air Operative Findings: dime-size perforation Description of Procedure: The patient was brought to the operating suite where he was clean and draped in sterile fashion. A timeout was performed, and everyone agreed with the information recited. Next a number 15 blade was used to make a midline incision just above the umbilicus down to the pubic area Electrocautery was used down through the fascia into the Peritoneum. We encountered a large amount of pus and purelent fluid. The small bowel was eviscerated and ran from the cecum to the ligament of Treitz. There was questionable areas of ischemia. Size perforation was found at the cecum. It was actively spilling out succus. This was clamped with a [place]. The white line of todt was mobilize from cephalad to caudad. I was able to identify healthy small 3 cm proximal to the ileocal valve. A hemostat was used to Isolate the small bowel segment and a 60 mm purple staple load was used to transect this area. I then further mobilized the right colon to the hepatic flexure. A 60 mm purple staple load was used to resect this segment. A ligasure device was used to take down the right colon mesentery and was passed off to nursing for pathology. A hemostatic timeout was performed. There was some bleeding in the right upper quadrant which was controlled with surgical powder. I created a ileocolonic anastomosis using multiple 60 mm purple stable loads. A 3-0 silk suture was used to create a crotch stitch. The abdomen was irrigated with greater than 5 L normal. Because of those ischemic areas, we decided to leave an abthera wound vac. The patient was transported to ICU and stable condition.
[2024-09-01 03:46] LABS: Basophils % (A) 0 %; Eosinophils % (A) 0 %; HCT 44.6 % (39.0-53.0); HGB 14.4 gm/dL (13.0-17.5); Lymphocytes # (A) 1.4 k/uL (1.0-4.8); Lymphocytes % (A) 13 %; MCH 30.6 pg (25.0-35.0); MCHC 32.3 g/dL (31.0-37.0); MCV 94.7 fL (80.0-100.0); Mean Platelet Volume 9.9; Monocytes # (A) 0.6 k/uL (0-1.0); Monocytes % (A) 6 %; Neutrophils % (A) 80 %; Platelet Count 185 k/uL (150-450); RBC 4.71 m/uL (4.30-5.90); RDW 14.1 % (11.5-15.5); WBC 11.3 k/uL (3.8-10.6)
[2024-09-01 04:00] LABS: African American GFR (CKD) 41 (>60 ml/min/1.73 sqM); Anion Gap 5 mmol/L; Blood Urea Nitrogen 65 mg/dL (9-20); Calcium 7.9 mg/dL (8.4-10.2); Carbon Dioxide 23 mmol/L (22-30); Chloride 109 mmol/L (98-107); Glucose 144 mg/dL (74-99); Non-African American GFR(CKD) 35 (>60 ml/min/1.73 sqM); Potassium 3.7 mmol/L (3.5-5.1); Sodium 137 mmol/L (137-145)
[2024-09-01] MEDS: POTASSIUM CHLORIDE 10 MEQ in WATER FOR INJECTION 1 100ML.BAG IVPB SCH (04:48)
[2024-09-01 05:43] LABS: ABG Base Excess 1.7 mmol/L; ABG HCO3 26 mmol/L (21-25); ABG Oxygen Saturation 97.2 % (94-97); ABG PCO2 38 mmHg (35-45); ABG PH 7.44 (7.35-7.45); ABG PO2 89 mmHg (83-108); ABG TCO2 27 mmol/L (19-24); Allen Test Performed? Yes
[2024-09-01 05:57] LABS: Glucose,Whole Blood 117 mg/dL (70-110)
[2024-09-01 06:31] LABS: Glucose,Whole Blood 120 mg/dL (70-110)
--- NOTE | 2024-09-01 07:58 | XR ---
EXAMINATION TYPE: XR chest 1V portable DATE OF EXAM: 09/01/2024 6:32 AM COMPARISON: None. CLINICAL INDICATION: Male, 69 years old with history of Tube placement, TECHNIQUE: XR chest 1V portable view(s) obtained. FINDINGS: The heart size is normal. The pulmonary vasculature is normal. The lungs are clear. Endotracheal tube tip is above the codi. Nasogastric tube tip is within the left upper quadrant of the abdomen. IMPRESSION: 1. No acute pulmonary process. 2 lines and catheters discussed above [facility], , 09/01/2024 7:56 AM
[2024-09-01] MEDS ORDERED: fentaNYL (PF) 50 MCG/ML 2 ML AMP ONE (09:07)
[2024-09-01] MEDS ORDERED: MIDAZOLAM 2 MG/2 ML VIAL ONE (09:07)
[2024-09-01] MEDS ORDERED: ROCURONIUM 10 MG/ML (5 ML VIAL) IV ONE (09:07)
[2024-09-01] MEDS ORDERED: HYDROmorphone (PF) 1 MG/ML ONE (09:07)
[2024-09-01] MEDS ORDERED: KETAMINE HCL IN 0.9 % NACL 50 MG/5 ML SYRINGE ONE (09:07)
[2024-09-01] MEDS: SODIUM CHLORIDE 0.9% 400 ML IV ONE (09:11)
--- NOTE | 2024-09-01 10:23 | P.OP ---
Date of Procedure: 09/01/24 Preoperative Diagnosis: Open Abdomen Postoperative Diagnosis: Open Abdomen Procedure(s) Performed: 1. Exploratory Laparotomy 2. Abdominal Washout 3. Abdominal Closure Anesthesia: MAC Surgeon: Ash Santos Pathology: none sent Condition: critical Disposition: ICU Description of Procedure: The patient was brought to the operating suite where he was prepped and draped in usual sterile fashion. A timeout was performed, and everyone agreed with the information recited. The previously placed Abthera Wound Vac was removed. The abdomen was inspected. The previously performed ileocolonic anatomosis was inspected and was noted to be intact and open. The bowel was ran from the ligament of treitz to the anastomosis and there were no areas of bowel that were concerning for ischemia. The colon appeared healthy. The abdomen was then thoroughly irrigated with copious amounts of saline. There was not active bleeding noted. The fascia was then closed in a running fashion with two looped #0 PDS sutures. The skin was approximated with skin lucero. A sterile dressing was applied. This concluded the procedure and the patient was sent back to the ICU in critical condition. The patient's daughter and brother were updated at the conclusion of the procedure.
--- NOTE | 2024-09-01 11:11 | P.CONS ---
History of Present Illness - History of Present Illness This is a pleasant 69 years old male who was transferred from [facility] about 2 days ago for perforated bowel Patient is status post exploratory laparotomy yesterday. Today's postop day #1. Large amount of pus was evacuated and possible evidence of some ischemic bowel. Patient after that was transferred to the critical care unit where he required to be placed on mechanical ventilation. Patient is mildly tachycardic and tachypneic, with respiratory to about 20, blood pressure is borderline. Currently blood pressure 92/56 Patient has mild leukocytosis of 11.3, acute kidney injury improving with creatinine 2.2 down to 1.9 Patient currently currently normal sinus 75 mL/h Also is on Zosyn and Flagyl Active Medications Generic Name Dose Route Start Last Admin Trade Name Freq PRN Reason Stop Dose Admin Albuterol/Ipratropium 3 ml 09/01/24 12:00 Ipratropium-Albuterol 3 Ml Neb INHALATION RT-Q4H MARII Budesonide 1 mg 09/01/24 20:00 Budesonide 1 Mg/2 Ml Nebu INHALATION RT-BID MARII Chlorhexidine Gluconate 15 ml 08/30/24 21:00 08/31/24 20:29 Chlorhexidine Gluconate 15 Ml Cup MUCOUS MEM 15 ml BID MARII Administration Dextrose/Water 25 ml 08/31/24 14:26 Dextrose 50% Syringe 50 Ml IVP PER PROTOCOL PRN Hypoglycemia Protocol Dextrose/Water 50 ml 08/31/24 14:26 Dextrose 50% Syringe 50 Ml IVP PER PROTOCOL PRN Hypoglycemia Protocol Formoterol Fumarate 20 mcg 09/01/24 20:00 Formoterol Fumarate 20 Mcg/2 Ml Nebu INHALATION RT-BID MARII Piperacillin Sod/Tazobactam 100 mls @ 25 mls/hr 08/30/24 20:00 09/01/24 03:18 Sod 3.375 gm/ Sodium Chloride IVPB 25 mls/hr Q8H MARII Administration Protocol Propofol 1,000 mg/ IV Solution 100 mls @ 10.002 mls/hr 08/30/24 19:45 09/01/24 04:57 IV 35 mcg/kg/min .Q10H MARII 23.337 mls/hr Titration Protocol 15 MCG/KG/MIN Lactated Ringer's 1,000 mls @ 75 mls/hr 08/30/24 19:45 09/01/24 03:17 Lactated Ringers IV 75 mls/hr .[id number] MARII Administration Metronidazole 500 mg/ IV 100 mls @ 100 mls/hr 08/31/24 00:00 09/01/24 08:00 Solution IVPB 100 mls/hr Q8HR MARII Administration Protocol Insulin Aspart 0 unit 08/31/24 18:00 09/01/24 06:41 Insulin Aspart (Novolog) 100 Unit/Ml Vial SQ Not Given Q6H MARII Protocol Miscellaneous Information 1 each 08/30/24 19:34 Potassium Replacement Protocol 1 Each Misc MISCELLANE DAILY PRN Per Protocol Miscellaneous Information 1 each 08/30/24 19:34 Magnesium Replacement Protocol 1 Each Misc MISCELLANE DAILY PRN Per Protocol Protocol Morphine Sulfate 4 mg 08/30/24 14:40 09/01/24 00:20 Morphine Sulfate 4 Mg/Ml Syringe IV 4 mg Q4HR PRN Administration Severe Pain (Scale 7 to 10) Naloxone HCl 0.2 mg 08/30/24 14:40 Naloxone 0.4 Mg/Ml 1 Ml Vial IV Q2M PRN Opioid Reversal Pantoprazole Sodium 40 mg 08/31/24 09:00 08/31/24 20:29 Pantoprazole 40 Mg/10 Ml Vial IVP 40 mg BID MARII Administration Review of Systems ROS unobtainable: due to endotracheal tube, due to mental status Past Medical History Past Medical History: Asthma, COPD, Diabetes Mellitus, GERD/Reflux, GI Bleed, Hyperlipidemia, Hypertension, Osteoarthritis (OA) Additional Past Medical History / Comment(s): Perforated bowel Aug 2024, History of Any Multi-Drug Resistant Organisms: None Reported Past Surgical History: Adenoidectomy, Tonsillectomy Additional Past Surgical History / Comment(s): colonoscopy; wisdom teeth removed Past Anesthesia/Blood Transfusion Reactions: No Reported Reaction Additional Past Anesthesia/Blood Transfusion Reaction / Comm: no hx blood transfusion Past Psychological History: Depression Additional Psychological History / Comment(s): 2 yrs ago Smoking Status: Former smoker Past Alcohol Use History: Occasional Additional Past Alcohol Use History / Comment(s): smoked about 1 1/2-2 ppd x 50 yrs - quit 5 yrs ago; drinks about 3 beers once a week; pt states used to drink daily- about a case (24) weekly; advised no alcohol 24 hrs prior to proc. Past Drug Use History: None Reported Medications and Allergies Home Medications Medication Instructions Recorded Confirmed Type Albuterol Sulfate [Albuterol 2 puff INHALATION RT-Q4H PRN 08/22/24 08/30/24 History Sulfate Hfa] Aspirin [Adult Low Dose Aspirin EC] 81 mg PO DAILY 08/22/24 08/30/24 History Atorvastatin [Lipitor] 40 mg PO DAILY 08/22/24 08/30/24 History Ergocalciferol [Vitamin D2 (1250 1,250 mcg PO WEEKLY 08/22/24 08/30/24 History Mcg = 29525 Iu)] Escitalopram [Lexapro] 10 mg PO DAILY 08/22/24 08/30/24 History Esomeprazole Magnesium [NexIUM] 20 mg PO DAILY 08/22/24 08/30/24 History Fluticasone Propion/Salmeterol 1 puff INHALATION RT-DAILY 08/22/24 08/30/24 History [Wixela 250-50 Inhub] Fluticasone Propionate 110 Mcg 1 puff INHALATION DIRECTED 08/22/24 08/30/24 History [Flovent 110 Mcg Inhaler] Metoprolol Tartrate [Lopressor] 25 mg PO BID 08/22/24 08/30/24 History Montelukast [Singulair] 10 mg PO DAILY 08/22/24 08/30/24 History OXcarbazepine 300 mg PO HS 08/22/24 08/30/24 History Tiotropium 2.5 Mcg/Puff [Spiriva 2 puff INHALATION RT-DAILY 08/22/24 08/30/24 History Respimat 2.5 Mcg] Tirzepatide [Mounjaro] 2.5 mg SQ WEEKLY 08/22/24 08/30/24 History allopurinoL 300 mg PO DAILY 08/22/24 08/30/24 History lisinopriL [Zestril] 20 mg PO DAILY 08/22/24 08/30/24 History Allergies Allergy/AdvReac Type Severity Reaction Status Date / Time No Known Allergies Allergy Verified 08/30/24 20:45 Physical Exam Vitals: Vital Signs Temp Pulse Pulse Resp BP Pulse Ox FiO2 09/01/24 08:00 98.6 F 88 20 102/72 95 50 09/01/24 07:43 50 09/01/24 07:30 91 20 100/74 95 09/01/24 07:00 89 20 85/66 94 L 09/01/24 06:30 92 20 103/63 95 09/01/24 06:00 92 20 109/62 95 09/01/24 05:30 89 20 107/70 95 09/01/24 05:00 89 20 96/64 95 09/01/24 04:30 89 20 109/78 96 09/01/24 04:14 50 09/01/24 04:00 98.6 F 86 20 104/72 97 50 09/01/24 03:49 50 09/01/24 03:30 89 20 96 09/01/24 03:00 89 20 104/70 96 09/01/24 02:30 89 20 97/65 96 09/01/24 02:00 90 20 102/70 96 09/01/24 01:30 92 20 102/70 95 09/01/24 01:00 93 20 91/68 95 09/01/24 00:30 92 20 103/69 94 L 09/01/24 00:16 90 20 109/78 93 L 09/01/24 00:14 50 09/01/24 00:00 99.0 F 94 20 105/77 93 L 50 08/31/24 23:30 95 20 105/75 94 L 08/31/24 23:07 50 08/31/24 23:00 95 20 101/79 94 L 08/31/24 22:30 96 20 96/71 95 08/31/24 22:00 98 20 102/75 95 08/31/24 21:30 99 20 98/75 95 08/31/24 21:00 98 20 88/69 95 08/31/24 20:30 102 H 20 97/75 93 L 08/31/24 20:00 100.0 F H 99 20 100/78 94 L 50 08/31/24 19:27 50 08/31/24 19:00 99 20 98/73 94 L 08/31/24 18:00 102 H 20 96/72 96 08/31/24 17:00 105 H 21 90/69 97 08/31/24 16:07 50 08/31/24 16:00 98.0 F 103 H 102 H 20 95/75 96 50 08/31/24 15:00 102 H 20 93/70 95 08/31/24 14:00 102 H 20 95 08/31/24 13:00 103 H 20 94/73 95 50 08/31/24 12:00 105 H 105 H 20 97/77 95 50 08/31/24 11:12 50 08/31/24 11:00 103 H 20 103/76 Intake and Output 08/31/24 09/01/24 09/01/24 22:59 06:59 14:59 Intake Total 4942.069 7526.387 456 Output Total 865 580 185 Balance 166.971 435.387 271 Intake: IV 876 924 456 Lactated Ringers 1,000 ml 600 600 150 @ 75 mls/hr IV .[id number] MARII Rx#:[id number] Piperacillin-Tazobactam 3 150 100 .375 gm In Sodium Chloride 0.9% 100 ml @ 25 mls/hr IVPB Q8H MARII Rx#: [id number] Potassium Chloride 10 meq 100 In Water For Injection 1 100ml.bag @ 100 mls/hr IVPB Q1H MARII Rx#: [id number] Pressure bag 26 24 6 metroNIDAZOLE-NS PMX 500 100 100 mg In Saline 1 100ml.bag @ 100 mls/hr IVPB Q8HR AMRII Rx#:[id number] Intake, IV Titration 155.971 91.387 Amount propofoL 1,000 mg In 155.971 91.387 Empty Bag 1 bag @ 15 MCG/ KG/MIN 10.002 mls/hr IV . Q10H MARII Rx#:[id number] Output: Gastric Drainage 350 150 50 Drainage 100 Abdomen 100 Urine 415 430 125 Estimated Blood Loss 10 Other: Voiding Method Indwelling Catheter Indwelling Catheter Weight 108.1 kg ABP, PAP, CO, CI - Last 8 Hours Arterial Blood Pressure 92/56 Arterial Blood Pressure 106/81 Arterial Blood Pressure 116/68 -GENERAL: The patient is intubated and sedated HEENT: Pupils are round and equally reacting to light. EOMI. No scleral icterus. No conjunctival pallor. Normocephalic, atraumatic. No pharyngeal erythema. No thyromegaly. CARDIOVASCULAR: S1 and S2 present. No murmurs, rubs, or gallops. PULMONARY: Chest is clear to auscultation, no wheezing , no crackles. -ABDOMEN: Soft, nontender, nondistended, normoactive bowel sounds. No palpable organomegaly. Vertical surgical wound closed with dressing in place. JUANCHO drain in place as well MUSCULOSKELETAL: No joint swelling or deformity. EXTREMITIES: No cyanosis, clubbing, or pedal edema. NEUROLOGICAL: Gross neurological examination did not reveal any focal deficits. SKIN: No rashes. no petechiae. Results CBC & Chem 7: 09/01/24 03:35 09/01/24 03:35 Labs: Abnormal Lab Results - Last 24 Hours (Table) 08/31/24 08/31/24 08/31/24 Range/Units 11:40 17:54 23:03 WBC (3.8-10.6) k/uL Neutrophils # (1.3-7.7) k/uL ABG HCO3 (21-25) mmol/L ABG Total CO2 (19-24) mmol/L ABG O2 Saturation (94-97) % Chloride (98-107) mmol/L BUN (9-20) mg/dL Creatinine (0.66-1.25) mg/dL Glucose (74-99) mg/dL POC Glucose (mg/dL) 159 H 122 H 135 H (70-110) mg/dL Calcium (8.4-10.2) mg/dL 09/01/24 09/01/24 09/01/24 Range/Units 03:35 03:35 05:40 WBC 11.3 H (3.8-10.6) k/uL Neutrophils # 9.0 H (1.3-7.7) k/uL ABG HCO3 26 H (21-25) mmol/L ABG Total CO2 27 H (19-24) mmol/L ABG O2 Saturation 97.2 H (94-97) % Chloride 109 H (98-107) mmol/L BUN 65 H (9-20) mg/dL Creatinine 1.91 H (0.66-1.25) mg/dL Glucose 144 H (74-99) mg/dL POC Glucose (mg/dL) (70-110) mg/dL Calcium 7.9 L (8.4-10.2) mg/dL 09/01/24 09/01/24 Range/Units 05:55 06:30 WBC (3.8-10.6) k/uL Neutrophils # (1.3-7.7) k/uL ABG HCO3 (21-25) mmol/L ABG Total CO2 (19-24) mmol/L ABG O2 Saturation (94-97) % Chloride (98-107) mmol/L BUN (9-20) mg/dL Creatinine (0.66-1.25) mg/dL Glucose (74-99) mg/dL POC Glucose (mg/dL) 117 H 120 H (70-110) mg/dL Calcium (8.4-10.2) mg/dL Assessment and Plan Assessment: Acute colonic perforation status post expiratory laparotomy with large pus was evacuated and possible ischemic bowel Intra-abdominal infection secondary to above Altered mental status with metabolic/toxic encephalopathy. Also patient was unable to protect airway and placed on intubation and mechanical ventilation Asthma/COPD, not an active issue Diabetes mellitus Hypertension Hyperlipidemia History of osteoarthritis History of GI bleed GERD COPD/asthma, not an active issue Plan: Continue with antibiotics Zosyn and Flagyl Continue with normal saline IV hydration Follow-up culture results Surgery primary team on the case Critical care team consult, Labs and medication were reviewed.. Continue same treatment. Continue with symptomatic treatment. Resume home medication. Monitor lytes and vitals. DVT and GI prophylaxis. Further recommendations depends on the clinical course of the patient DVT prophylaxis: Herrera mechanical GI Prophylaxis: Protonix Prognosis is guarded
--- NOTE | 2024-09-01 11:25 | P.PN ---
Subjective Progress Note Date: 09/01/24 Principal diagnosis: Acute pneumoperitoneum secondary to cecal perforation This is a 69-year-old white male with a known history of multiple medical problems including GERD, dyslipidemia hypertension and degenerative joint disease, patient had a recent screening colonoscopy on 08/26/2024 which was reported as normal except for a right colonic polyp that could not be removed m ostly because the patient started having the nausea and vomiting during the procedure which had to be aborted and the surgeon felt that the procedure should be done again at a later date. Patient was discharged home, and he presented yesterday to [facility] emergency room complaining of abdominal pain nausea and vomiting. Patient could not hold any food down. He had mostly liquid stools. Patient was noted to have leukocytosis, CT of the abdomen pelvis showed free intraperitoneal air with diffusely dilated loops of small bowel with air-fluid levels consistent with acute pneumoperitoneum/acute surgical abdomen. Patient was transferred to [facility], and he was seen by surgery on consultation. Underwent exploratory laparotomy right hemicolectomy and the plan is to go back to have another look tomorrow. Patient was admitted to the ICU on mechanical ventilation last night, and I was asked to see him in consultation. He is now on assist-control rate of 20 tidal volume 500 FiO2 was 70% and PEEP was 5 however after reviewing ABG I cut down FiO2 to 60% and PEEP increased to 8. ABG on 70% showed a pO2 of 86 pCO2 38 pH of 7.39. Reviewing the chart, there is no surgical operative report on this patient, but based on the note/progress note, patient had cecal perforation with ischemia and he underwent exploratory laparotomy, ileocecectomy with bowel left in discontinue OT, and a wound VAC was placed, the plan is to have another look tomorrow into the abdominal cavity. Patient is on LR 125 cc/h he is also on propofol at 40 mcg/kg/min he had a temp of 102.7 last night, on antibiotics in the form of Flagyl and Zosyn. Chest x-ray showed mild pulmonary edema and the patient received Lasix 40 mg IV push x 1.WBC count today is 12.1 hemoglobin is 16.2, basic metabolic profile is normal however BUN is 60 and creatinine 2.07 baseline creatinine on admission was 2.30. Patient was seen today on 09/01/2024, remains intubated and mechanically ventilated, patient is going back to the OR today around 10 AM. In the meantime the patient is on assist-control rate of 20 tidal volume 500 FiO2 50% and PEEP of 8 ABG showed a pO2 of 89 pCO2 38 pH of 7.44, hence no changes were made in his ventilator settings. Patient is sedated on propofol at 35 mg/kg/min IV fluid is running at 75 cc/h patient remains on Zosyn and Flagyl. No major issues overnight, no hemodynamic instability patient is not requiring any pressors. Patient is not started on any feeding yet, may have to be placed on TPN in the next 24 hours patient is going back to surgery today around 10 AM. Labs today were reviewed WBC count is 11.3 hemoglobin 14.4 basic metabolic profile is normal, renal profile remains abnormal with improvement BUN 65 creatinine 1.91, baseline creatinine is unknown prior to this admission and it was 2.29 on 08/30. Chest x-ray showed no acute pulmonary process improved compared to the chest x-ray done yesterday, patient did receive 1 dose of Lasix yesterday. Objective - Vital Signs Vital signs: Vital Signs Temp 98.6 F 09/01/24 08:00 Pulse 90 09/01/24 11:00 Resp 20 09/01/24 11:00 BP 107/70 09/01/24 11:00 Pulse Ox 92 L 09/01/24 11:00 FiO2 50 09/01/24 10:13 Intake & Output 08/31/24 09/01/24 09/01/24 18:59 06:59 18:59 Intake Total 7273.076 6878.617 555.667 Output Total 2140 880 185 Balance -583.117 515.617 370.667 Weight 108.1 kg Intake: IV 1259 1258 456 Lactated Ringers 1,000 ml 950 825 150 @ 75 mls/hr IV .[id number] MARII Rx#:[id number] Piperacillin-Tazobactam 3 75 200 .375 gm In Sodium Chloride 0.9% 100 ml @ 25 mls/hr IVPB Q8H MARII Rx#: [id number] Potassium Chloride 10 meq 100 In Water For Injection 1 100ml.bag @ 100 mls/hr IVPB Q1H MARII Rx#: [id number] Pressure bag 34 33 6 metroNIDAZOLE-NS PMX 500 200 100 mg In Saline 1 100ml.bag @ 100 mls/hr IVPB Q8HR MARII Rx#:[id number] Intake, IV Titration 297.883 137.617 99.667 Amount propofoL 1,000 mg In 297.883 137.617 99.667 Empty Bag 1 bag @ 15 MCG/ KG/MIN 10.002 mls/hr IV . Q10H MARII Rx#:[id number] Output: Gastric Drainage 650 300 50 Drainage 525 Abdomen 525 Urine 965 580 125 Estimated Blood Loss 10 Other: Voiding Method Indwelling Catheter Indwelling Catheter ABP, PAP, CO, CI - Last Documented Arterial Blood Pressure 90/88 - Exam General: Revealed a 69-year-old white male intubated mechanically ventilated Head: Atraumatic, normocephalic, endotracheal tube and orogastric tube are intact. Skin: Skin is warm and dry and no rashes or lesions are noted. Eye: Pupils are equal, round and reactive to light Ears, nose, mouth and throat: There are moist mucous membranes and no oral lesions. Neck: The neck is supple, there is no tenderness or JVD. Cardiovascular: Distant S1-S2, no S3 gallop. Respiratory: Symmetrical chest expansion, diminished breath sounds at the bases minimal crackles at the bases no rhonchi no wheezing Gastrointestinal: Obese, postsurgical, wound VAC is noted. Musculoskeletal: No deformities noted. Could not assess range of motion patient is sedated Neurological: Could not assess, patient is sedated, on propofol Psychiatric: Could not assess - Labs CBC & Chem 7: 09/01/24 03:35 09/01/24 03:35 Labs: Abnormal Lab Results - Last 24 Hours (Table) 08/31/24 08/31/24 08/31/24 Range/Units 11:40 17:54 23:03 WBC (3.8-10.6) k/uL Neutrophils # (1.3-7.7) k/uL ABG HCO3 (21-25) mmol/L ABG Total CO2 (19-24) mmol/L ABG O2 Saturation (94-97) % Chloride (98-107) mmol/L BUN (9-20) mg/dL Creatinine (0.66-1.25) mg/dL Glucose (74-99) mg/dL POC Glucose (mg/dL) 159 H 122 H 135 H (70-110) mg/dL Calcium (8.4-10.2) mg/dL 09/01/24 09/01/24 09/01/24 Range/Units 03:35 03:35 05:40 WBC 11.3 H (3.8-10.6) k/uL Neutrophils # 9.0 H (1.3-7.7) k/uL ABG HCO3 26 H (21-25) mmol/L ABG Total CO2 27 H (19-24) mmol/L ABG O2 Saturation 97.2 H (94-97) % Chloride 109 H (98-107) mmol/L BUN 65 H (9-20) mg/dL Creatinine 1.91 H (0.66-1.25) mg/dL Glucose 144 H (74-99) mg/dL POC Glucose (mg/dL) (70-110) mg/dL Calcium 7.9 L (8.4-10.2) mg/dL 09/01/24 09/01/24 Range/Units 05:55 06:30 WBC (3.8-10.6) k/uL Neutrophils # (1.3-7.7) k/uL ABG HCO3 (21-25) mmol/L ABG Total CO2 (19-24) mmol/L ABG O2 Saturation (94-97) % Chloride (98-107) mmol/L BUN (9-20) mg/dL Creatinine (0.66-1.25) mg/dL Glucose (74-99) mg/dL POC Glucose (mg/dL) 117 H 120 H (70-110) mg/dL Calcium (8.4-10.2) mg/dL Assessment and Plan Assessment: Impression: Status post exploratory laparotomy ileocecectomy, with bowel left in discontinuity for cecal perforation and ischemic bowel, postoperative day #2 Acute hypoxic respiratory failure secondary to above Acute pneumoperitoneum/surgical abdomen requiring surgery as noted above. Acute abdominal sepsis secondary to acute pneumoperitoneum and bowel perforation Recent colonoscopy on 08/26/2024 complicated by nausea vomiting and possible aspiration hence polypectomy could not be performed History of underlying COPD/asthma History of diabetes type 2 Benign essential hypertension Degenerative joint disease History of GERD Acute kidney injury, possible acute tubular necrosis secondary to sepsis and possibly hypotension, baseline creatinine is unknown prior to this admission to the Recommendation: Continue ventilatory support, vent settings were kept the same today Patient to have another exploratory laparotomy today remind you his bowel was left in discontinuity for cecal perforation and ischemic bowel, surgery would likely be completed today. Continue GI DVT prophylaxis Continue hemodynamic support if necessary, remains hemodynamically stable at this point and has not required any pressors Continue antibiotics for his abdominal sepsis patient is on Flagyl and Zosyn Continue IV fluids, monitor closely electrolytes and renal profile Patient to be considered for likely TPN tomorrow Resume home meds Close monitoring of blood sugars and address accordingly use sliding scale coverage Continue bronchodilators including albuterol, DuoNeb, Symbicort. Singulair. Medical service to address his medical issues/admission patient is primarily a patient of Dr. Najera Discussed and updated his at bedside regarding his condition. Patient is critically ill, critical care time is over 30 minutes Time with Patient: Greater than 30
[2024-09-01 12:25] LABS: Glucose,Whole Blood 101 mg/dL (70-110)
[2024-09-01] MEDS: IPRATROPIUM-ALBUTEROL 3 ML NEB INHALATION SCH (12:44)
[2024-09-01 18:00] LABS: Glucose,Whole Blood 97 mg/dL (70-110)
[2024-09-01] MEDS: BUDESONIDE 1 MG/2 ML NEBU INHALATION SCH (20:13)
[2024-09-01] MEDS: FORMOTEROL FUMARATE 20 MCG/2 ML NEBU INHALATION SCH (20:13)
[2024-09-01 23:12] LABS: Glucose,Whole Blood 103 mg/dL (70-110)
[2024-09-02 04:28] LABS: Basophils % (A) 0 %; Eosinophils % (A) 0 %; HCT 43.5 % (39.0-53.0); HGB 13.7 gm/dL (13.0-17.5); Lymphocytes # (A) 1.4 k/uL (1.0-4.8); Lymphocytes % (A) 12 %; MCH 30.4 pg (25.0-35.0); MCHC 31.6 g/dL (31.0-37.0); MCV 96.1 fL (80.0-100.0); Mean Platelet Volume 9.6; Monocytes # (A) 0.6 k/uL (0-1.0); Monocytes % (A) 6 %; Neutrophils # (A) 8.9 k/uL (1.3-7.7); Neutrophils % (A) 81 %; Platelet Count 185 k/uL (150-450); RBC 4.52 m/uL (4.30-5.90); RDW 14.4 % (11.5-15.5); WBC 11.1 k/uL (3.8-10.6)
[2024-09-02 04:41] LABS: African American GFR (CKD) 67 (>60 ml/min/1.73 sqM); Anion Gap 5 mmol/L; Blood Urea Nitrogen 48 mg/dL (9-20); Calcium 7.6 mg/dL (8.4-10.2); Carbon Dioxide 24 mmol/L (22-30); Chloride 112 mmol/L (98-107); Glucose 133 mg/dL (74-99); Non-African American GFR(CKD) 58 (>60 ml/min/1.73 sqM); Potassium 3.6 mmol/L (3.5-5.1); Sodium 141 mmol/L (137-145)
[2024-09-02] MEDS: POTASSIUM CHLORIDE 10 MEQ in WATER FOR INJECTION 1 100ML.BAG IVPB SCH (05:09)
[2024-09-02 05:37] LABS: ABG HCO3 27 mmol/L (21-25); ABG Oxygen Saturation 95.7 % (94-97); ABG PCO2 41 mmHg (35-45); ABG PH 7.43 (7.35-7.45); ABG PO2 78 mmHg (83-108); ABG TCO2 28 mmol/L (19-24); Allen Test Performed? Yes
[2024-09-02 06:38] LABS: Glucose,Whole Blood 118 mg/dL (70-110)
--- NOTE | 2024-09-02 08:19 | XR ---
EXAMINATION TYPE: XR chest 1V portable DATE OF EXAM: 09/02/2024 5:31 AM COMPARISON: 09/01/2024 CLINICAL INDICATION: Male, 69 years old with history of Tube placement, FINDINGS: Indwelling tubes and catheters are unchanged. No change in bibasilar opacities. Stable appearance of the cardio-mediastinal structures at this time. IMPRESSION: 1. Stable portable chest. Clinical correlation and follow up until resolution is recommended. [facility], , 09/02/2024 8:17 AM
--- NOTE | 2024-09-02 11:48 | P.PN ---
Subjective Progress Note Date: 09/02/24 Patient is a 69-year-old male who initially presented on 08/30/2024 as a transfer from [facility] with complaints of abdominal pain. He had a colonoscopy on 08/26/2024 and shortly after that he began having the abdominal pain with intermittent nausea and vomiting. He had been unable to hold down any food and was having mostly liquid stools. He was noted to have WBCs 17.9. Initial ABG showed pH 7.27, pCO2 47, pO2 112. According to the patient chart CT abdomen/pelvis performed at [facility] showed free intraperitoneal air with diffusely dilated loops of small bowel with air-fluid levels consistent with acute pneumoperitoneum/acute surgical abdomen and he was subsequently transferred to [facility]. On 08/30/2024 he underwent exploratory laparotomy with ileocecectomy and was found to have eviscerated small bowel and areas of ischemic bowel. The abdomen remained open and a wound VAC was placed. 09/02/2024. Patient is being seen in the ICU for follow-up of perforated bowel. He is postop day 3 of his initial exploratory laparotomy with ileocecectomy. He underwent additional exploratory laparotomy with abdominal washout and closure yesterday. Most recent labs show WBCs 11.1, hemoglobin 13.7, sodium 141, potassium 3.6, creatinine 1.26. He is currently sedated and intubated on mechanical ventilation. Vent settings are AC mode, rate of 20, tidal volume 500, FiO2 50%, PEEP 8. He is on propofol 50 mcg/kg/min, lactated Ringer's at 75 mL/h, and Flagyl and Zosyn for empiric antibiotics. Objective - Vital Signs Vital signs: Vital Signs Temp 99.7 F H 09/02/24 08:00 Pulse 115 H 09/02/24 11:00 Resp 24 09/02/24 11:00 BP 104/63 09/02/24 11:00 Pulse Ox 93 L 09/02/24 11:00 FiO2 50 09/02/24 08:00 Intake & Output 09/01/24 09/02/24 09/02/24 18:59 06:59 18:59 Intake Total 4947.441 3479.575 570.677 Output Total 1280 1000 310 Balance 390.852 655.575 260.677 Weight 109.5 kg Intake: IV 1308 1336 512 Lactated Ringers 1,000 ml 825 900 300 @ 75 mls/hr IV .[id number] [facility] Rx#:[id number] Piperacillin-Tazobactam 3 100 200 .375 gm In Sodium Chloride 0.9% 100 ml @ 25 mls/hr IVPB Q8H [facility] Rx#: [id number] Potassium Chloride 10 meq 100 100 In Water For Injection 1 100ml.bag @ 100 mls/hr IVPB Q1H [facility] Rx#: [id number] Pressure bag 33 36 12 metroNIDAZOLE-NS PMX 500 50 100 100 mg In Saline 1 100ml.bag @ 100 mls/hr IVPB Q8HR [facility] Rx#:[id number] Intake, IV Titration 362.852 319.575 58.677 Amount metroNIDAZOLE-NS PMX 500 50 mg In Saline 1 100ml.bag @ 100 mls/hr IVPB Q8HR [facility] Rx#:[id number] propofoL 1,000 mg In 312.852 319.575 58.677 Empty Bag 1 bag @ 15 MCG/ KG/MIN 10.002 mls/hr IV . Q10H [facility] Rx#:[id number] Output: Gastric Drainage 400 100 Urine 870 900 310 Estimated Blood Loss 10 Other: Voiding Method Indwelling Catheter Indwelling Catheter Indwelling Catheter ABP, PAP, CO, CI - Last Documented Arterial Blood Pressure 120/62 - Exam Vital signs are stable. General: No acute distress. Mechanically ventilated. HEENT: Head exam is unremarkable. EOMI bilaterally. ACs patent. Nares patent. Lungs: Mechanical bilateral breath sounds present; no rhonchi, wheezes, or rales. Heart: Rate and rhythm are regular. S1-S2 present. No murmur/rub/gallops. Abdomen: Soft, nondistended. Midline incision present and covered with dressings. Bowel sounds present. Extremities: No edema present. Psych: Sedated. - Labs CBC & Chem 7: 09/02/24 04:20 09/02/24 04:20 Labs: Abnormal Lab Results - Last 24 Hours (Table) 09/02/24 09/02/24 09/02/24 Range/Units 04:20 04:20 05:33 WBC 11.1 H (3.8-10.6) k/uL Neutrophils # 8.9 H (1.3-7.7) k/uL ABG pO2 78 L (83-108) mmHg ABG HCO3 27 H (21-25) mmol/L ABG Total CO2 28 H (19-24) mmol/L Chloride 112 H (98-107) mmol/L BUN 48 H (9-20) mg/dL Creatinine 1.26 H (0.66-1.25) mg/dL Glucose 133 H (74-99) mg/dL POC Glucose (mg/dL) (70-110) mg/dL Calcium 7.6 L (8.4-10.2) mg/dL 09/02/24 Range/Units 06:37 WBC (3.8-10.6) k/uL Neutrophils # (1.3-7.7) k/uL ABG pO2 (83-108) mmHg ABG HCO3 (21-25) mmol/L ABG Total CO2 (19-24) mmol/L Chloride (98-107) mmol/L BUN (9-20) mg/dL Creatinine (0.66-1.25) mg/dL Glucose (74-99) mg/dL POC Glucose (mg/dL) 118 H (70-110) mg/dL Calcium (8.4-10.2) mg/dL Assessment and Plan Assessment: Status post exploratory laparotomy with abdominal washout and closure, postop day 1. Status post exploratory laparotomy with ileocecectomy, postop day 3. Acute kidney injury likely secondary to sepsis and hypotension. Baseline creatinine prior to admission is unknown. Creatinine improved to 1.26 today from 2.29 on admission. Acute hypoxia. History of recent colonoscopy on 08/26/2024 complicated by nausea and vomiting with possible aspiration. History of COPD. History of type 2 diabetes mellitus. History of hypertension. History of GERD. Plan: Attempt a ventilator weaning trial today with possible extubation. Discontinue propofol. Continue to monitor hemodynamics. Continue Flagyl and Zosyn. Continue fluids. Continue budesonide, formoterol, DuoNebs. Continue IV Protonix.
[2024-09-02 12:06] LABS: Glucose,Whole Blood 143 mg/dL (70-110)
--- NOTE | 2024-09-02 14:03 | P.PN ---
Subjective Progress Note Date: 09/02/24 This is 69-year-old gentleman status post exploratory laparotomy with ileocecectomy secondary to cecal perforation, questionable areas of ischemia, returned to OR yesterday for exploratory laparotomy, abdominal washout with abdominal closure. Vent dependent, FiO2 50%/post 8 of PEEP. Continues on propofol, IV fluid hydration, Flagyl, Zosyn. No pressors required at this time. Mild tachycardia. Hemoglobin 13.7, platelets 185. Tmax 100.9, WBC 11.1. Renal function improving, bicarb 24, BUN 48, creatinine 1.26. Blood sugars controlled. Chest x-ray reporting stable. Objective - Vital Signs Vital signs: Vital Signs Temp 97.9 F 09/02/24 12:00 Pulse 113 H 09/02/24 12:00 Resp 21 09/02/24 12:00 BP 116/74 09/02/24 12:00 Pulse Ox 94 L 09/02/24 12:00 FiO2 50 09/02/24 11:31 Intake & Output 09/01/24 09/02/24 09/02/24 18:59 06:59 18:59 Intake Total 9925.230 7667.575 586.236 Output Total 1280 1000 510 Balance 390.852 655.575 76.236 Weight 109.5 kg Intake: IV 1308 1336 512 Lactated Ringers 1,000 ml 825 900 300 @ 75 mls/hr IV .[id number] [facility] Rx#:[id number] Piperacillin-Tazobactam 3 100 200 .375 gm In Sodium Chloride 0.9% 100 ml @ 25 mls/hr IVPB Q8H [facility] Rx#: [id number] Potassium Chloride 10 meq 100 100 In Water For Injection 1 100ml.bag @ 100 mls/hr IVPB Q1H [facility] Rx#: [id number] Pressure bag 33 36 12 metroNIDAZOLE-NS PMX 500 50 100 100 mg In Saline 1 100ml.bag @ 100 mls/hr IVPB Q8HR [facility] Rx#:[id number] Intake, IV Titration 362.852 319.575 74.236 Amount metroNIDAZOLE-NS PMX 500 50 mg In Saline 1 100ml.bag @ 100 mls/hr IVPB Q8HR [facility] Rx#:[id number] propofoL 1,000 mg In 312.852 319.575 74.236 Empty Bag 1 bag @ 15 MCG/ KG/MIN 10.002 mls/hr IV . Q10H [facility] Rx#:[id number] Output: Gastric Drainage 400 100 Urine 870 900 510 Estimated Blood Loss 10 Other: Voiding Method Indwelling Catheter Indwelling Catheter Indwelling Catheter ABP, PAP, CO, CI - Last Documented Arterial Blood Pressure 120/62 - Exam GENERAL: Sitting up in bed, intubated and sedated HEENT: Normocephalic, pupils equal and round, no conjunctival pallor. ETT/OG tube present CARDIOVASCULAR: S1 and S2 present. No murmurs, rubs, or gallops. PULMONARY: equal air entry ,chest is clear to auscultation, no wheezing , no crackles. ABDOMEN: Soft, obese, status post surgery, hypoactive bowel sounds. Large abdominal dressing clean dry and intact. EXTREMITIES: No cyanosis, clubbing, or pedal edema. NEUROLOGICAL: Unable to evaluate at this time patient is sedated and intubated SKIN: Warm and dry, no rashes noted - Labs CBC & Chem 7: 09/02/24 04:20 09/02/24 04:20 Labs: Abnormal Lab Results - Last 24 Hours (Table) 09/02/24 09/02/24 09/02/24 Range/Units 04:20 04:20 05:33 WBC 11.1 H (3.8-10.6) k/uL Neutrophils # 8.9 H (1.3-7.7) k/uL ABG pO2 78 L (83-108) mmHg ABG HCO3 27 H (21-25) mmol/L ABG Total CO2 28 H (19-24) mmol/L Chloride 112 H (98-107) mmol/L BUN 48 H (9-20) mg/dL Creatinine 1.26 H (0.66-1.25) mg/dL Glucose 133 H (74-99) mg/dL POC Glucose (mg/dL) (70-110) mg/dL Calcium 7.6 L (8.4-10.2) mg/dL 09/02/24 09/02/24 Range/Units 06:37 12:05 WBC (3.8-10.6) k/uL Neutrophils # (1.3-7.7) k/uL ABG pO2 (83-108) mmHg ABG HCO3 (21-25) mmol/L ABG Total CO2 (19-24) mmol/L Chloride (98-107) mmol/L BUN (9-20) mg/dL Creatinine (0.66-1.25) mg/dL Glucose (74-99) mg/dL POC Glucose (mg/dL) 118 H 143 H (70-110) mg/dL Calcium (8.4-10.2) mg/dL Assessment and Plan Assessment: Acute abdominal sepsis secondary to acute pneumoperitoneum ,status post exploratory laparotomy with ileocecectomy secondary to cecal perforation, questionable areas of ischemia, returned to OR yesterday 09/01/24 for exploratory laparotomy, abdominal washout with abdominal closure. Acute hypoxic respiratory failure, ventilator dependent, secondary to the above Acute renal failure, ATN secondary to sepsis, hypoperfusion, hypotension Recent screening colonoscopy on 08/26 with right sided colon polyp identified, procedure aborted prior to polypectomy as patient started vomiting, possible aspiration History of COPD History of asthma Diabetes mellitus type 2 Hypertension Degenerative joint disease Gastroesophageal reflux disease Plan: Continue on current medication resume ,monitoring and symptomatic treatm ent.maintain IV fluids, antibiotics of Zosyn and Flagyl .ICU management/ventilator management as per billet shearer. Aggressive pulmonary toileting with nebulized bronchodilators, Symbicort. Weaning trial this morning with potential extubation. local wound care as per general surgery. The impression and plan of care has been dictated as directed. : I performed a history and examination of this patient, discussed the same with the dictator. I agree with the dictator's note ,documented as a scribe. Any additional findings or plans will be noted.
--- NOTE | 2024-09-02 14:32 | CDI ---
Documentation Clarification Form Date: 09/02/2024 02:02:11 PM From: Roselia White RN CCDS Phone: [phone] Admit Date: 08/30/2024 02:41:00 PM Patient Name: Bryan Pulido Visit Number: [id number] Discharge Date: ATTENTION: The Clinical Documentation Specialists (CDI) and [facility] Coding Staff appreciate your assistance in clarifying documentation. Please respond to the clarification below the line at the bottom and electronically sign. The CDI & [facility] Coding staff will review the response and follow-up if needed. Please note: Queries are made part of the Legal Health Record. If you have any questions, please contact the author of this message via ITS. Doctor: González Pruitt Colon perforation is documented 09/01, Procedure note and patient had Colonoscopy at [facility]. Additional clarification is requested regarding the relationship, if any, that exists between the diagnosis and the procedure. Patients Admitting Diagnosis: Free air Post-Operative Diagnosis: Colon peroration Procedure performed: Exploratory laparotomy with ielocectomy History/Risk Factors: 69 year old male was transferred to the ED from [facility]. The patient had a colonoscopy on 08/26 and soon after started having abdominal pain. He has intermittent nausea with vomiting. Liquid stools and one bowel moment today. Wbc 19,[address] ABD revealed intraperitoneal air and dilated bowels. Medical History Asthma, COPD DM Gerd GI Bleed HLD and HTN. 08/30 ED Report Clinical Indicators: 08/30 ED note: at [facility] CT was performed which demonstrated free intraperitoneal air with diffusely dilated loops of small bowel with air-fluid levels and possible transition point within the right lower quadrant of the abdomen. 09/01, Pulmonary note: Acute abdominal sepsis secondary to acute pneumoperitoneum and bowel perforation. Recent colonoscopy on 08/26/2024 complicated by nausea vomiting and possible aspiration hence polypectomy could not be performed. Treatment: Transfer to [facility] for exploratory surgery. 08/30 Zosyn ivpb Q8H, Metronidazole IVPB Q8H What relationship, if any, exists between the diagnosis of and the procedure: [ ] Perforated colon is a complication of surgical procedure [ ] Perforated colon is related to patients co-morbid condition(s) of [insert co-morbid dxs[] & not a complication of the procedure [ ] Other please specify ____ [X ] Unable to determine (Template Last Revised: December 2020) MTDD
[2024-09-02 18:01] LABS: Glucose,Whole Blood 114 mg/dL (70-110)
--- NOTE | 2024-09-02 20:55 | P.PN ---
Subjective Progress Note Date: 09/02/24 Patient seen and examined at bedside just after extubation. Appears to be doing well. States pain is tolerable at this time. Nasogastric tube in place. Objective - Vital Signs Vital signs: Vital Signs Temp 98.5 F 09/02/24 16:00 Pulse 92 09/02/24 20:09 Resp 23 09/02/24 19:00 BP 114/77 09/02/24 19:00 Pulse Ox 94 L 09/02/24 19:00 FiO2 50 09/02/24 12:00 Intake & Output 09/02/24 09/02/24 09/03/24 06:59 18:59 06:59 Intake Total 8068.025 0853.236 3 Output Total 1000 930 75 Balance 655.575 480.236 -72 Weight 109.5 kg 109.5 kg Intake: IV 1336 1336 3 Lactated Ringers 1,000 ml 900 900 @ 75 mls/hr IV .[id number] [facility] Rx#:[id number] Piperacillin-Tazobactam 3 200 100 .375 gm In Sodium Chloride 0.9% 100 ml @ 25 mls/hr IVPB Q8H [facility] Rx#: [id number] Potassium Chloride 10 meq 100 100 In Water For Injection 1 100ml.bag @ 100 mls/hr IVPB Q1H [facility] Rx#: [id number] Pressure bag 36 36 3 metroNIDAZOLE-NS PMX 500 100 200 mg In Saline 1 100ml.bag @ 100 mls/hr IVPB Q8HR [facility] Rx#:[id number] Intake, IV Titration 319.575 74.236 Amount propofoL 1,000 mg In 319.575 74.236 Empty Bag 1 bag @ 15 MCG/ KG/MIN 10.002 mls/hr IV . Q10H [facility] Rx#:[id number] Output: Gastric Drainage 100 Urine 900 930 75 Other: Voiding Method Indwelling Catheter Indwelling Catheter ABP, PAP, CO, CI - Last Documented Arterial Blood Pressure 148/80 - Constitutional General appearance: Present: cooperative, no acute distress - Respiratory Details: No difficulty with respiration - Gastrointestinal Gastrointestinal Comment(s): Soft, mildly distended, midline incision with surgical dressing in place - Labs CBC & Chem 7: 09/02/24 04:20 09/02/24 04:20 Labs: Abnormal Lab Results - Last 24 Hours (Table) 09/02/24 09/02/24 09/02/24 Range/Units 04:20 04:20 05:33 WBC 11.1 H (3.8-10.6) k/uL Neutrophils # 8.9 H (1.3-7.7) k/uL ABG pO2 78 L (83-108) mmHg ABG HCO3 27 H (21-25) mmol/L ABG Total CO2 28 H (19-24) mmol/L Chloride 112 H (98-107) mmol/L BUN 48 H (9-20) mg/dL Creatinine 1.26 H (0.66-1.25) mg/dL Glucose 133 H (74-99) mg/dL POC Glucose (mg/dL) (70-110) mg/dL Calcium 7.6 L (8.4-10.2) mg/dL 09/02/24 09/02/24 09/02/24 Range/Units 06:37 12:05 18:00 WBC (3.8-10.6) k/uL Neutrophils # (1.3-7.7) k/uL ABG pO2 (83-108) mmHg ABG HCO3 (21-25) mmol/L ABG Total CO2 (19-24) mmol/L Chloride (98-107) mmol/L BUN (9-20) mg/dL Creatinine (0.66-1.25) mg/dL Glucose (74-99) mg/dL POC Glucose (mg/dL) 118 H 143 H 114 H (70-110) mg/dL Calcium (8.4-10.2) mg/dL Microbiology - Last 24 Hours (Table) 09/01/24 03:45 Gram Stain - Preliminary Sputum Sputum Culture - Preliminary Assessment and Plan Plan: Postoperative day #1/3 after right hemicolectomy secondary to perforated cecum. Patient was just extubated. Continue nasogastric tube. Await bowel function. Continue IV antibiotics. Will begin increase activity. Continue incentive spirometer. Continue ICU care at this point. González Pruitt DO
[2024-09-02 23:44] LABS: Glucose,Whole Blood 96 mg/dL (70-110)
[2024-09-03 06:33] LABS: Glucose,Whole Blood 87 mg/dL (70-110)
[2024-09-03 06:46] LABS: Basophils % (A) 0 %; Eosinophils % (A) 0 %; HCT 39.2 % (39.0-53.0); HGB 12.6 gm/dL (13.0-17.5); Hypochromasia Slight; Lymphocytes # (A) 1.4 k/uL (1.0-4.8); Lymphocytes % (A) 12 %; MCH 31.1 pg (25.0-35.0); MCHC 32.2 g/dL (31.0-37.0); MCV 96.8 fL (80.0-100.0); Mean Platelet Volume 9.3; Monocytes # (A) 0.8 k/uL (0-1.0); Monocytes % (A) 7 %; Neutrophils # (A) 8.7 k/uL (1.3-7.7); Neutrophils % (A) 78 %; Platelet Count 204 k/uL (150-450); RBC 4.05 m/uL (4.30-5.90); RDW 14.4 % (11.5-15.5); WBC 11.1 k/uL (3.8-10.6)
[2024-09-03 06:56] LABS: African American GFR (CKD) >90 (>60 ml/min/1.73 sqM); Anion Gap 2 mmol/L; Blood Urea Nitrogen 29 mg/dL (9-20); Calcium 7.7 mg/dL (8.4-10.2); Carbon Dioxide 29 mmol/L (22-30); Chloride 114 mmol/L (98-107); Glucose 100 mg/dL (74-99); Non-African American GFR(CKD) 82 (>60 ml/min/1.73 sqM); Sodium 145 mmol/L (137-145)
[2024-09-03] MEDS ORDERED: IPRATROPIUM-ALBUTEROL 3 ML NEB INHALATION PRN (09:11)
--- NOTE | 2024-09-03 11:15 | P.PN ---
Subjective Progress Note Date: 09/03/24 Principal diagnosis: Abdominal pain. Patient is a 69-year-old male who initially presented on 08/30/2024 as a transfer from [facility] with complaints of abdominal pain. He had a colonoscopy on 08/26/2024 and shortly after that he began having the abdominal pain with intermittent nausea and vomiting. He had been unable to hold down any food and was having mostly liquid stools. He was noted to have WBCs 17.9. Initial ABG showed pH 7.27, pCO2 47, pO2 112. According to the patient chart CT abdomen/pelvis performed at [facility] showed free intrape ritoneal air with diffusely dilated loops of small bowel with air-fluid levels consistent with acute pneumoperitoneum/acute surgical abdomen and he was subsequently transferred to [facility]. On 08/30/2024 he underwent exploratory laparotomy with ileocecectomy and was found to have eviscerated small bowel and areas of ischemic bowel. The abdomen remained open and a wound VAC was placed. 09/02/2024. Patient is being seen in the ICU for follow-up of perforated bowel. He is postop day 3 of his initial exploratory laparotomy with ileocecectomy. He underwent additional exploratory laparotomy with abdominal washout and closure yesterday. Most recent labs show WBCs 11.1, hemoglobin 13.7, sodium 141, potassium 3.6, creatinine 1.26. He is currently sedated and intubated on mechanical ventilation. Vent settings are AC mode, rate of 20, tidal volume 500, FiO2 50%, PEEP 8. He is on propofol 50 mcg/kg/min, lactated Ringer's at 75 mL/h, and Flagyl and Zosyn for empiric antibiotics. Progress note dated September 03, 2024. 69-year-old male who is seen today in the intensive care unit, room 264. The patient was extubated yesterday, September 02. Currently he is on 4 L nasal rose channing. Nasogastric tube remains in place. The patient is currently getting lactated Ringer's at 75 cc an hour. He continues on Flagyl and Zosyn for his antibiotics. He is resting comfortably in bed, no distress. Current labs include a white count 11.1, hemoglobin 12.6, hematocrit 39.2, and a normal platelet count. Sodium 145, potassium 4, chlorides 114, CO2 29, BUN 29, creatinine 0.95. Glucose 100. Calcium 7.7. Objective - Vital Signs Vital signs: Vital Signs Temp 100.0 F H 09/03/24 08:00 Pulse 96 09/03/24 11:03 Resp 23 09/03/24 10:00 BP 138/81 09/03/24 10:00 Pulse Ox 91 L 09/03/24 10:00 FiO2 4 09/03/24 00:00 Intake & Output 09/02/24 09/03/24 09/03/24 18:59 06:59 18:59 Intake Total 4602.867 2576 103 Output Total 930 900 100 Balance 480.236 161 3 Weight 109.5 kg 111.2 kg Intake: IV 1336 1061 103 Lactated Ringers 1,000 ml 900 750 75 @ 75 mls/hr IV .[id number] [facility] Rx#:[id number] Piperacillin-Tazobactam 3 100 175 25 .375 gm In Sodium Chloride 0.9% 100 ml @ 25 mls/hr IVPB Q8H [facility] Rx#: [id number] Potassium Chloride 10 meq 100 In Water For Injection 1 100ml.bag @ 100 mls/hr IVPB Q1H [facility] Rx#: [id number] Pressure bag 36 36 3 metroNIDAZOLE-NS PMX 500 200 100 mg In Saline 1 100ml.bag @ 100 mls/hr IVPB Q8HR [facility] Rx#:[id number] Intake, IV Titration 74.236 Amount propofoL 1,000 mg In 74.236 Empty Bag 1 bag @ 15 MCG/ KG/MIN 10.002 mls/hr IV . Q10H [facility] Rx#:[id number] Output: Urine 930 900 100 Other: Voiding Method Indwelling Catheter Indwelling Catheter ABP, PAP, CO, CI - Last Documented Arterial Blood Pressure 55/53 - Exam No acute distress, oriented 3. Currently on 4 L nasal cannula. Nasogastric tube remains in place. HEENT examination is grossly unremarkable. Mucous membranes are moist. No oral lesions. Neck supple. Full range of motion. No adenopathy thyromegaly or neck vein distention. Cardiovascular examination reveals regular rhythm rate. S1-S2 normal. No S3 or S4. No discernible murmur noted. Lungs reveal clear breath sounds. Her sounds are equal bilaterally. No adventitious lung sounds including wheezes rhonchi or crackles. Abdomen soft without bowel sounds. Dressings are in place. Extremities are intact. No cyanosis clubbing or edema. Skin is without rash or lesion. Neurologic examination is brief but nonfocal. - Labs CBC & Chem 7: 09/03/24 06:33 09/03/24 06:33 Labs: Abnormal Lab Results - Last 24 Hours (Table) 09/02/24 09/02/24 09/03/24 Range/Units 12:05 18:00 06:33 WBC 11.1 H (3.8-10.6) k/uL RBC 4.05 L (4.30-5.90) m/uL Hgb 12.6 L (13.0-17.5) gm/dL Neutrophils # 8.7 H (1.3-7.7) k/uL Chloride (98-107) mmol/L BUN (9-20) mg/dL Glucose (74-99) mg/dL POC Glucose (mg/dL) 143 H 114 H (70-110) mg/dL Calcium (8.4-10.2) mg/dL 09/03/24 Range/Units 06:33 WBC (3.8-10.6) k/uL RBC (4.30-5.90) m/uL Hgb (13.0-17.5) gm/dL Neutrophils # (1.3-7.7) k/uL Chloride 114 H (98-107) mmol/L BUN 29 H (9-20) mg/dL Glucose 100 H (74-99) mg/dL POC Glucose (mg/dL) (70-110) mg/dL Calcium 7.7 L (8.4-10.2) mg/dL Microbiology - Last 24 Hours (Table) 09/01/24 03:45 Gram Stain - Final Sputum Sputum Culture - Final Assessment and Plan Assessment: Postop day #2, S/P exploratory laparotomy, with abdominal washout and closure. Postop day #4, S/P exploratory laparotomy with ileocecectomy. Acute kidney injury, likely secondary to sepsis, and hypotension. Acute hypoxemic respiratory failure, status post extubation, September 02, 2024. History of recent colonoscopy, August 26, 2024, complicated by nausea/vomiting , with possible aspiration. History of chronic obstructive pulmonary disease. History of type 2 diabetes mellitus. History of essential hypertension. History of gastroesophageal reflux disease. Plan: Plan dated September 03, 2024. The patient remains in the intensive care unit. He was just extubated yesterday, September 02. He is currently on 4 L nasal cannula. He is getting lula th Flagyl and Zosyn, as antibiotic coverage. He is getting lactated Ringer's at 75 cc an hour. An NG tube remains in place. We will continue to follow make recommendations along the way. Labs, x-rays, and all medications are reviewed. Prognosis is certainly guarded. Time with Patient: Greater than 30
--- NOTE | 2024-09-03 11:34 | P.PN ---
Subjective Progress Note Date: 09/03/24 This is 69-year-old gentleman status post exploratory laparotomy with ileocecectomy secondary to cecal perforation, questionable areas of ischemia, returned to OR yesterday for exploratory laparotomy, abdominal washout with abdominal closure. Vent dependent, FiO2 50%/post 8 of PEEP. Continues on propofol, IV fluid hydration, Flagyl, Zosyn. No pressors required at this time. Mild tachycardia. Hemoglobin 13.7, platelets 185. Tmax 100.9, WBC 11.1. Renal function improving, bicarb 24, BUN 48, creatinine 1.26. Blood sugars controlled. Chest x-ray reporting stable. 09/03/2024 extubated yesterday, maintaining O2 sats of 93% on 4 L nasal cannula. Continues on IV fluid hydration, Flagyl, Zosyn. Remains n.p.o. with NG tube present. Reports mild nausea. Pain controlled. Tmax 100 axillary, WBC 11.1, hemoglobin 12.6, platelets 204. Sodium 145, potassium 4, chloride 114, bicarb 29, BUN 29, creatinine 0.95, blood sugars controlled, calcium 7.7 Objective - Vital Signs Vital signs: Vital Signs Temp 100.0 F H 09/03/24 08:00 Pulse 88 09/03/24 11:17 Resp 23 09/03/24 10:00 BP 138/81 09/03/24 10:00 Pulse Ox 91 L 09/03/24 10:00 FiO2 4 09/03/24 00:00 Intake & Output 09/02/24 09/03/24 09/03/24 18:59 06:59 18:59 Intake Total 6272.936 3882 545 Output Total 930 900 380 Balance 480.236 161 165 Weight 109.5 kg 111.2 kg Intake: IV 1336 1061 545 Lactated Ringers 1,000 ml 900 750 375 @ 75 mls/hr IV .[id number] [facility] Rx#:[id number] Piperacillin-Tazobactam 3 100 175 25 .375 gm In Sodium Chloride 0.9% 100 ml @ 25 mls/hr IVPB Q8H [facility] Rx#: [id number] Potassium Chloride 10 meq 100 In Water For Injection 1 100ml.bag @ 100 mls/hr IVPB Q1H [facility] Rx#: [id number] Pressure bag 36 36 15 metroNIDAZOLE-NS PMX 500 200 100 130 mg In Saline 1 100ml.bag @ 100 mls/hr IVPB Q8HR [facility] Rx#:[id number] Intake, IV Titration 74.236 Amount propofoL 1,000 mg In 74.236 Empty Bag 1 bag @ 15 MCG/ KG/MIN 10.002 mls/hr IV . Q10H [facility] Rx#:[id number] Output: Urine 930 900 380 Other: Voiding Method Indwelling Catheter Indwelling Catheter ABP, PAP, CO, CI - Last Documented Arterial Blood Pressure 55/53 - Exam GENERAL: Sitting up in bed, alert and oriented x 3, no acute distress HEENT: Normocephalic, pupils equal and round, no conjunctival pallor. NG tube present CARDIOVASCULAR: S1 and S2 present. No murmurs, rubs, or gallops. PULMONARY: equal air entry ,chest is clear to auscultation, no wheezing , no crackles. ABDOMEN: Soft, obese, status post surgery, hypoactive bowel sounds. Abdominal dressing clean dry and intact. EXTREMITIES: No cyanosis, clubbing, or pedal edema. NEUROLOGICAL: Cranial nerves II through XII grossly intact. SKIN: Warm and dry, no rashes noted - Labs CBC & Chem 7: 09/03/24 06:33 09/03/24 06:33 Labs: Abnormal Lab Results - Last 24 Hours (Table) 09/02/24 09/02/24 09/03/24 Range/Units 12:05 18:00 06:33 WBC 11.1 H (3.8-10.6) k/uL RBC 4.05 L (4.30-5.90) m/uL Hgb 12.6 L (13.0-17.5) gm/dL Neutrophils # 8.7 H (1.3-7.7) k/uL Chloride (98-107) mmol/L BUN (9-20) mg/dL Glucose (74-99) mg/dL POC Glucose (mg/dL) 143 H 114 H (70-110) mg/dL Calcium (8.4-10.2) mg/dL 09/03/24 Range/Units 06:33 WBC (3.8-10.6) k/uL RBC (4.30-5.90) m/uL Hgb (13.0-17.5) gm/dL Neutrophils # (1.3-7.7) k/uL Chloride 114 H (98-107) mmol/L BUN 29 H (9-20) mg/dL Glucose 100 H (74-99) mg/dL POC Glucose (mg/dL) (70-110) mg/dL Calcium 7.7 L (8.4-10.2) mg/dL Microbiology - Last 24 Hours (Table) 09/01/24 03:45 Gram Stain - Final Sputum Sputum Culture - Final Assessment and Plan Assessment: Acute abdominal sepsis secondary to acute pneumoperitoneum ,status post exploratory laparotomy with ileocecectomy secondary to cecal perforation, questionable areas of ischemia, returned to OR yesterday 09/01/24 for exploratory laparotomy, abdominal washout with abdominal closure. Acute hypoxic respiratory failure, status post ventilator dependent, secondary to the above. Acute renal failure, ATN secondary to sepsis, hypoperfusion, hypotension, improved, baseline GFR 90, baseline creatinine 0.9. Recent screening colonoscopy on 08/26 with right sided colon polyp identified, procedure aborted prior to polypectomy as patient started vomiting, possible aspiration History of COPD History of asthma Diabetes mellitus type 2 Hypertension Degenerative joint disease Gastroesophageal reflux disease Plan: Continue on current medication resume ,monitoring and symptomatic treatment.NPO, NG present -management as per general surgery .continue IV fluids, antibiotics of Zosyn and Flagyl . Aggressive pulmonary toileting with nebulized bronchodilators, Symbicort. PT/OT. The impression and plan of care has been dictated as directed. : I performed a history and examination of this patient, discussed the same with the dictator. I agree with the dictator's note ,documented as a scribe. Any additional findings or plans will be noted.
[2024-09-03 12:11] LABS: Glucose,Whole Blood 100 mg/dL (70-110)
--- NOTE | 2024-09-03 15:57 | P.PN ---
Subjective Progress Note Date: 09/03/24 SURGICAL PROGRESS NOTE CHIEF COMPLAINT: Perforated cecum HISTORY OF PRESENT ILLNESS: Patient currently in the ICU. Patient was extubated yesterday. Patient is postop day #2 status post right hemicolectomy. He is currently sitting at bedside chair. Pain is controlled. Denies any nausea or vomiting. Denies any flatus. Vital stable. WBC 11.1 Hgb 12.6 creatinine 0.95 PHYSICAL EXAM: VITAL SIGNS: Reviewed. GENERAL: Well-developed in no acute distress. HEENT: No sclera icterus. Extraocular movements grossly intact. Moist buccal mucosa. Head is atraumatic, normocephalic. ABDOMEN: Soft. Mildly distended. Incision site clean dry and intact. Minimal erythema noted. NEUROLOGIC: Alert and oriented. Cranial nerves II through XII grossly intact. ASSESSMENT: 1. Perforated cecum status post right hemicolectomy PLAN: -Keep patient n.p.o. except for ice chips -Continue antibiotics -Continue pain management -Increase activity level -Encourage patient to use incentive spirometer -Patient can be transferred out of the ICU to [facility] floor with telemetry Physician Taxation Agent note has been reviewed by physician. Signing provider agrees with the documented findings, assessment, and plan of care. Objective - Vital Signs Vital signs: Vital Signs Temp 99.0 F 09/03/24 12:00 Pulse 90 09/03/24 15:00 Resp 17 09/03/24 15:00 BP 127/79 09/03/24 15:00 Pulse Ox 93 L 09/03/24 15:00 FiO2 4 09/03/24 00:00 Intake & Output 09/02/24 09/03/24 09/03/24 18:59 06:59 18:59 Intake Total 4331.341 0955 545 Output Total 930 900 380 Balance 480.236 161 165 Weight 109.5 kg 111.2 kg Intake: IV 1336 1061 545 Lactated Ringers 1,000 ml 900 750 375 @ 75 mls/hr IV .[id number] [facility] Rx#:[id number] Piperacillin-Tazobactam 3 100 175 25 .375 gm In Sodium Chloride 0.9% 100 ml @ 25 mls/hr IVPB Q8H [facility] Rx#: [id number] Potassium Chloride 10 meq 100 In Water For Injection 1 100ml.bag @ 100 mls/hr IVPB Q1H [facility] Rx#: [id number] Pressure bag 36 36 15 metroNIDAZOLE-NS PMX 500 200 100 130 mg In Saline 1 100ml.bag @ 100 mls/hr IVPB Q8HR [facility] Rx#:[id number] Intake, IV Titration 74.236 Amount propofoL 1,000 mg In 74.236 Empty Bag 1 bag @ 15 MCG/ KG/MIN 10.002 mls/hr IV . Q10H [facility] Rx#:[id number] Output: Urine 930 900 380 Other: Voiding Method Indwelling Catheter Indwelling Catheter Indwelling Catheter ABP, PAP, CO, CI - Last Documented Arterial Blood Pressure 55/53 - Labs CBC & Chem 7: 09/03/24 06:33 09/03/24 06:33 Labs: Abnormal Lab Results - Last 24 Hours (Table) 09/02/24 09/03/24 09/03/24 Range/Units 18:00 06:33 06:33 WBC 11.1 H (3.8-10.6) k/uL RBC 4.05 L (4.30-5.90) m/uL Hgb 12.6 L (13.0-17.5) gm/dL Neutrophils # 8.7 H (1.3-7.7) k/uL Chloride 114 H (98-107) mmol/L BUN 29 H (9-20) mg/dL Glucose 100 H (74-99) mg/dL POC Glucose (mg/dL) 114 H (70-110) mg/dL Calcium 7.7 L (8.4-10.2) mg/dL Microbiology - Last 24 Hours (Table) 09/01/24 03:45 Gram Stain - Final Sputum Sputum Culture - Final Assessment and Plan Assessment: Perforated cecum status post right hemicolectomy PLAN: -Keep patient n.p.o. except for ice chips -Continue antibiotics -Continue pain management -Increase activity level -Encourage patient to use incentive spirometer -Patient can be transferred out of the ICU to [facility] floor with telemetry Time with Patient: Less than 30
[2024-09-03 23:47] LABS: Glucose,Whole Blood 103 mg/dL (70-110)
[2024-09-04 06:07] LABS: Glucose,Whole Blood 95 mg/dL (70-110)
--- NOTE | 2024-09-04 10:29 | P.PN ---
Subjective Progress Note Date: 09/04/24 SURGICAL PROGRESS NOTE CHIEF COMPLAINT: Perforated cecum HISTORY OF PRESENT ILLNESS: Postop day #3 status post right hemicolectomy. Patient currently in the ICU. Patient sitting at bedside chair. Pain is controlled. Patient is having flatus did have a small bowel movement. Denies any nausea or vomiting. WBC 11.1 PHYSICAL EXAM: VITAL SIGNS: Reviewed. GENERAL: Well-developed in no acute distress. HEENT: No sclera icterus. Extraocular movements grossly intact. Moist buccal mucosa. Head is atraumatic, normocephalic. ABDOMEN: Soft. Mildly distended. Incision site clean dry and intact. Small area of dried blood noted at the umbilicus. Mild erythema at incision site NEUROLOGIC: Alert and oriented. Cranial nerves II through XII grossly intact. ASSESSMENT: 1. Perforated cecum status post right hemicolectomy PLAN: -Advance diet to sips of clear liquids -Continue antibiotics -Continue pain management -Increase activity level -Encourage patient to use incentive spirometer -Patient can be transferred out of the ICU to [facility] floor with telemetry Physician Acid Recovery Operator note has been reviewed by physician. Signing provider agrees with the documented findings, assessment, and plan of care. Objective - Vital Signs Vital signs: Vital Signs Temp 98.7 F 09/04/24 08:00 Pulse 87 09/04/24 08:00 Resp 16 09/04/24 08:00 BP 124/90 09/04/24 08:00 Pulse Ox 92 L 09/04/24 08:00 FiO2 4 09/03/24 00:00 Intake & Output 09/03/24 09/04/24 09/04/24 18:59 06:59 18:59 Intake Total 1022 1175 130 Output Total 660 815 Balance 362 360 130 Weight 109.2 kg Intake: IV 1022 1175 10 Invasive Line 6 10 Lactated Ringers 1,000 ml 750 975 @ 75 mls/hr IV .[id number] [facility] Rx#:[id number] Piperacillin-Tazobactam 3 125 100 .375 gm In Sodium Chloride 0.9% 100 ml @ 25 mls/hr IVPB Q8H [facility] Rx#: [id number] Pressure bag 27 metroNIDAZOLE-NS PMX 500 120 100 mg In Saline 1 100ml.bag @ 100 mls/hr IVPB Q8HR [facility] Rx#:[id number] Oral 120 Output: Urine 660 815 Other: Voiding Method Indwelling Catheter Indwelling Catheter ABP, PAP, CO, CI - Last Documented Arterial Blood Pressure 55/53 - Labs CBC & Chem 7: 09/03/24 06:33 09/03/24 06:33 Labs: Microbiology - Last 24 Hours (Table) 09/01/24 03:45 Gram Stain - Final Sputum Sputum Culture - Final Assessment and Plan Assessment: Perforated cecum status post right hemicolectomy PLAN: -Advance diet to sips of clear liquids -Continue antibiotics -Continue pain management -Increase activity level -Encourage patient to use incentive spirometer -Patient can be transferred out of the ICU to [facility] floor with telemetry Time with Patient: Less than 30
[2024-09-04] MEDS: INSULIN ASPART (NovoLOG) 100 UNIT/ML VIAL SQ SCH (10:42)
[2024-09-04 11:14] VITALS: BMI 32.6
[2024-09-04 11:55] LABS: Glucose,Whole Blood 103 mg/dL (70-110)
--- NOTE | 2024-09-04 14:53 | P.PN ---
Subjective Progress Note Date: 09/04/24 Patient is a 69-year-old male who initially presented on 08/30/2024 as a transfer from [facility] with complaints of abdominal pain. He had a colonoscopy on 08/26/2024 and shortly after that he began having the abdominal pain with intermittent nausea and vomiting. He had been unable to hold down any food and was having mostly liquid stools. He was noted to have WBCs 17.9. Initial ABG showed pH 7.27, pCO2 47, pO2 112. According to the patient chart CT abdomen/pelvis performed at [facility] showed free intraperitoneal air with diffusely dilated loops of small bowel with air-fluid levels consistent with acute pneumoperitoneum/acute surgical abdomen and he was subsequently transferred to [facility]. On 08/30/2024 he underwent exploratory laparotomy with ileocecectomy and was found to have eviscerated small bowel and areas of ischemic bowel. The abdomen remained open and a wound VAC was placed. 09/02/2024. Patient is being seen in the ICU for follow-up of perforated bowel. He is postop day 3 of his initial exploratory laparotomy with ileocecectomy. He underwent additional exploratory laparotomy with abdominal washout and closure yesterday. Most recent labs show WBCs 11.1, hemoglobin 13.7, sodium 141, potassium 3.6, creatinine 1.26. He is currently sedated and intubated on mechanical ventilation. Vent settings are AC mode, rate of 20, tidal volume 500, FiO2 50%, PEEP 8. He is on propofol 50 mcg/kg/min, lactated Ringer's at 75 mL/h, and Flagyl and Zosyn for empiric antibiotics. 09/03/2024. 69-year-old male who is seen today in the intensive care unit, room 264. The patient was extubated yesterday, September 02. Currently he is on 4 L nasal cannula. Nasogastric tube remains in place. The patient is currently getting lactated Ringer's at 75 cc an hour. He continues on Flagyl and Zosyn for his antibiotics. He is resting comfortably in bed, no distress. Current labs include a white count 11.1, hemoglobin 12.6, hematocrit 39.2, and a normal platelet count. Sodium 145, potassium 4, chlorides 114, CO2 29, BUN 29, creatinine 0.95. Glucose 100. Calcium 7.7. 09/04/2024. Patient is seen as a follow-up with the ICU resting comfortably in the bedside chair. He is postop day 5 of his initial exploratory laparotomy with ileocecectomy. He is postop day 3 of his exploratory laparotomy with abdominal washout and closure. He is currently on 4 L nasal cannula. The NG tube has been removed. He is on lactated Ringer's at 75 cc/h. He is maintained on Flagyl and Zosyn. No labs were obtained today. He has no significant comp laints today. Objective - Vital Signs Vital signs: Vital Signs Temp 98.7 F 09/04/24 08:00 Pulse 88 09/04/24 11:33 Resp 16 09/04/24 08:00 BP 124/90 09/04/24 08:00 Pulse Ox 92 L 09/04/24 08:00 FiO2 4 09/03/24 00:00 Intake & Output 09/03/24 09/04/24 09/04/24 18:59 06:59 18:59 Intake Total 1022 1175 680 Output Total 660 815 176 Balance 362 360 504 Weight 109.2 kg 109.2 kg Intake: IV 1022 1175 560 Invasive Line 6 10 Lactated Ringers 1,000 ml 750 975 450 @ 75 mls/hr IV .[id number] [facility] Rx#:[id number] Piperacillin-Tazobactam 3 125 100 100 .375 gm In Sodium Chloride 0.9% 100 ml @ 25 mls/hr IVPB Q8H [facility] Rx#: [id number] Pressure bag 27 metroNIDAZOLE-NS PMX 500 120 100 mg In Saline 1 100ml.bag @ 100 mls/hr IVPB Q8HR [facility] Rx#:[id number] Oral 120 Output: Urine 660 815 175 Emesis 1 Other: Voiding Method Indwelling Catheter Indwelling Catheter Indwelling Catheter # Bowel Movements 2 ABP, PAP, CO, CI - Last Documented Arterial Blood Pressure 55/53 - Exam Vital signs are stable. General: No acute distress. AO x 4. HEENT: Head exam is unremarkable. EOMI bilaterally. ACs patent. Nares patent. Lungs: Bilateral breath sounds present; no rhonchi, wheezes, or rales. Heart: Rate and rhythm are regular. S1-S2 present. No murmur/rub/gallops. Abdomen: Soft, nondistended. Midline incision present and covered with dressings. Bowel sounds present. Extremities: No edema present. Neuro: CN IIXII grossly intact. - Labs CBC & Chem 7: 09/03/24 06:33 09/03/24 06:33 Labs: Microbiology - Last 24 Hours (Table) 09/01/24 03:45 Gram Stain - Final Sputum Sputum Culture - Final Assessment and Plan Assessment: Status post exploratory laparotomy with abdominal washout and closure, postop day 3. Status post exploratory laparotomy with ileocecectomy, postop day 5. Acute kidney injury likely secondary to sepsis and hypotension. Baseline creatinine prior to admission is unknown. Improved. Acute hypoxic respiratory failure. Status postextubation on 09/02/2024. History of recent colonoscopy on 08/26/2024 complicated by nausea and vomiting with possible aspiration. History of COPD. History of type 2 diabetes mellitus. History of hypertension. History of GERD. Plan: Continue to monitor hemodynamics. Continue Flagyl and Zosyn. Continue lactated Ringer's. Continue budesonide, formoterol, DuoNebs. Encourage use of incentive spirometer. Continue IV Protonix. Can begin small sips of clear liquids as per surgery. Consider transferring patient to [facility] floor with telemetry.
[2024-09-04 18:00] LABS: Glucose,Whole Blood 101 mg/dL (70-110)
[2024-09-04 23:37] LABS: Glucose,Whole Blood 153 mg/dL (70-110)
[2024-09-05 06:28] LABS: Glucose,Whole Blood 139 mg/dL (70-110)
[2024-09-05] MEDS: IPRATROPIUM-ALBUTEROL 3 ML NEB INHALATION SCH (08:18)
[2024-09-05 08:28] LABS: Basophils # (A) 0.03 X 10*3/uL (0.00-0.10); Basophils % (A) 0.3 %; Eosinophils # (A) 0 X 10*3/uL (0.04-0.35); Eosinophils % (A) 0 %; HCT 37.8 % (39.6-50.0); Lymphocytes # (A) 1.66 X 10*3/uL (0.90-5.00); Lymphocytes % (A) 15.1 %; MCH 30.3 pg (27.0-32.0); MCHC 31.7 g/dL (32.0-37.0); MCV 95.5 FL (80.0-97.0); Monocytes # (A) 0.92 X 10*3/uL (0.20-1.00); Monocytes % (A) 8.4 %; NRBC Per 100 WBC 0 X 10*3/uL (0.00-0.01); Neutrophils # (A) 8.11 X 10*3/uL (1.80-7.70); Platelet Count 236 X 10*3/uL (140-440); RBC 3.96 X 10*6/uL (4.40-5.60); RDW 15.3 % (11.5-14.5); WBC 10.96 X 10*3/uL (4.50-10.00)
[2024-09-05 08:43] LABS: BUN/Creat Ratio 37.12 Ratio (12.00-20.00); Blood Urea Nitrogen 29.7 mg/dL (9.0-27.0); Calcium 7.9 mg/dL (8.7-10.3); Carbon Dioxide 26.9 mmol/L (21.6-31.8); Chloride 111 mmol/L (96-109); Glucose 124 mg/dL (70-110); Potassium 4.3 mmol/L (3.5-5.5); Sodium 146 mmol/L (135-145)
[2024-09-05 11:27] LABS: Glucose,Whole Blood 103 mg/dL (70-110)
[2024-09-05] MEDS: HYDROcodone/APAP 5-325MG 1 EACH TAB PO PRN (11:43)
--- NOTE | 2024-09-05 13:04 | P.PN ---
Subjective Progress Note Date: 09/05/24 SURGICAL PROGRESS NOTE CHIEF COMPLAINT: Perforated cecum HISTORY OF PRESENT ILLNESS: Postop day #4 status post right hemicolectomy. Patient transferred out of the ICU and is currently on a regular medical floor. His pain is controlled. He is having multiple bowel movements. He reports that he is hungry. Afebrile. WBC is down from 11.1-10.96 hgb 12 PHYSICAL EXAM: VITAL SIGNS: Reviewed. GENERAL: Well-developed in no acute distress. HEENT: No sclera icterus. Extraocular movements grossly intact. Moist buccal mucosa. Head is atraumatic, normocephalic. ABDOMEN: Soft. Mildly distended. Incision site with erythema noted. There is serosanguineous drainage noted on the dressing NEUROLOGIC: Alert and oriented. Cranial nerves II through XII grossly intact. ASSESSMENT: 1. Perforated cecum status post right hemicolectomy PLAN: -Advance diet to low fiber -Change surgical dressing -[place] added for oral pain medication -Continue antibiotics -Encourage patient to ambulate -Subcu heparin added for DVT prophylaxis Physician Hr Generalist note has been reviewed by physician. Signing provider agrees with the documented findings, assessment, and plan of care. Attestation Patient seen and examined at bedside. States he is having multiple bowel movements. Advance to low fiber diet. Recommend to continue to increase activity with physical therapy. Abdominal wound was evaluated with some mild drainage around the umbilicus site. Continue IV antibiotics. Patient is at risk for surgical site infection secondary to perforated bowel. Will continue to closely monitor. González Pruitt, Objective - Vital Signs Vital signs: Vital Signs Temp 98.2 F 09/05/24 07:42 Pulse 76 09/05/24 12:03 Resp 13 09/05/24 08:01 BP 128/80 09/05/24 07:42 Pulse Ox 94 L 09/05/24 08:21 FiO2 4 09/03/24 00:00 Intake & Output 09/04/24 09/05/24 09/05/24 18:59 06:59 18:59 Intake Total 1080 Output Total 751 Balance 329 Weight 109.2 kg Intake: IV 960 Invasive Line 6 10 Lactated Ringers 1,000 ml 750 @ 75 mls/hr IV .[id number] [facility] Rx#:[id number] Piperacillin-Tazobactam 3 100 .375 gm In Sodium Chloride 0.9% 100 ml @ 25 mls/hr IVPB Q8H [facility] Rx#: [id number] metroNIDAZOLE-NS PMX 500 100 mg In Saline 1 100ml.bag @ 100 mls/hr IVPB Q8HR [facility] Rx#:[id number] Oral 120 Output: Urine 750 Emesis 1 Other: Voiding Method Indwelling Catheter Toilet Urinal # Voids 3 # Bowel Movements 1 ABP, PAP, CO, CI - Last Documented Arterial Blood Pressure 55/53 - Labs CBC & Chem 7: 09/05/24 05:20 09/05/24 05:20 Labs: Abnormal Lab Results - Last 24 Hours (Table) 09/04/24 09/04/24 09/05/24 Range/Units 09:37 23:36 05:20 WBC 10.96 H (4.50-10.00) X 10*3/uL RBC 3.96 L (4.40-5.60) X 10*6/uL Hgb 12.0 L (13.0-17.0) g/dL Hct 37.8 L (39.6-50.0) % MCHC 31.7 L (32.0-37.0) g/dL RDW 15.3 H (11.5-14.5) % Immature Gran # 0.24 H (0.00-0.04) X 10*3/uL Neutrophils # 8.11 H (1.80-7.70) X 10*3/uL Eosinophils # 0 L (0.04-0.35) X 10*3/uL Sodium (135-145) mmol/L Chloride (96-109) mmol/L BUN (9.0-27.0) mg/dL BUN/Creatinine Ratio (12.00-20.00) Ratio Glucose (70-110) mg/dL POC Glucose (mg/dL) 153 H (70-110) mg/dL Calcium (8.7-10.3) mg/dL Procalcitonin 0.53 H (0.02-0.50) ng/mL 09/05/24 09/05/24 Range/Units 05:20 06:26 WBC (4.50-10.00) X 10*3/uL RBC (4.40-5.60) X 10*6/uL Hgb (13.0-17.0) g/dL Hct (39.6-50.0) % MCHC (32.0-37.0) g/dL RDW (11.5-14.5) % Immature Gran # (0.00-0.04) X 10*3/uL Neutrophils # (1.80-7.70) X 10*3/uL Eosinophils # (0.04-0.35) X 10*3/uL Sodium 146 H (135-145) mmol/L Chloride 111 H (96-109) mmol/L BUN 29.7 H (9.0-27.0) mg/dL BUN/Creatinine Ratio 37.12 H (12.00-20.00) Ratio Glucose 124 H (70-110) mg/dL POC Glucose (mg/dL) 139 H (70-110) mg/dL Calcium 7.9 L (8.7-10.3) mg/dL Procalcitonin (0.02-0.50) ng/mL
--- NOTE | 2024-09-05 14:24 | P.PN ---
Subjective Progress Note Date: 09/05/24 Principal diagnosis: Abdominal pain. Patient is a 69-year-old male who initially presented on 08/30/2024 as a transfer from [facility] with complaints of abdominal pain. He had a colonoscopy on 08/26/2024 and shortly after that he began having the abdominal pain with intermittent nausea and vomiting. He had been unable to hold down any food and was having mostly liquid stools. He was noted to have WBCs 17.9. Initial ABG showed pH 7.27, pCO2 47, pO2 112. According to the patient chart CT abdomen/pelvis performed at [facility] showed free intrape ritoneal air with diffusely dilated loops of small bowel with air-fluid levels consistent with acute pneumoperitoneum/acute surgical abdomen and he was subsequently transferred to [facility]. On 08/30/2024 he underwent exploratory laparotomy with ileocecectomy and was found to have eviscerated small bowel and areas of ischemic bowel. The abdomen remained open and a wound VAC was placed. 09/02/2024. Patient is being seen in the ICU for follow-up of perforated bowel. He is postop day 3 of his initial exploratory laparotomy with ileocecectomy. He underwent additional exploratory laparotomy with abdominal washout and closure yesterday. Most recent labs show WBCs 11.1, hemoglobin 13.7, sodium 141, potassium 3.6, creatinine 1.26. He is currently sedated and intubated on mechanical ventilation. Vent settings are AC mode, rate of 20, tidal volume 500, FiO2 50%, PEEP 8. He is on propofol 50 mcg/kg/min, lactated Ringer's at 75 mL/h, and Flagyl and Zosyn for empiric antibiotics. Progress note dated September 03, 2024. 69-year-old male who is seen today in the intensive care unit, room 264. The patient was extubated yesterday, September 02. Currently he is on 4 L nasal rose channing. Nasogastric tube remains in place. The patient is currently getting lactated Ringer's at 75 cc an hour. He continues on Flagyl and Zosyn for his antibiotics. He is resting comfortably in bed, no distress. Current labs include a white count 11.1, hemoglobin 12.6, hematocrit 39.2, and a normal platelet count. Sodium 145, potassium 4, chlorides 114, CO2 29, BUN 29, creatinine 0.95. Glucose 100. Calcium 7.7. Progress note dated September 05, 2024. 69-year-old male seen today in room 472. The patient is doing relatively well. He is currently on lactated Ringer's at 75 cc an hour. He has been weaned off of oxygen. He is on room air. He is working with physical therapy currently. Current labs include a white count 10.9, hemoglobin 12, hematocrit 37.8, and a normal platelet count. Sodium 146, potassium 4.3, chlorides 111, CO2 27, BUN 29.7, creatinine 0.8. Glucose 124. Objective - Vital Signs Vital signs: Vital Signs Temp 98.1 F 09/05/24 12:22 Pulse 93 09/05/24 12:22 Resp 18 09/05/24 12:22 BP 130/90 09/05/24 12:22 Pulse Ox 98 09/05/24 12:22 FiO2 4 09/03/24 00:00 Intake & Output 09/04/24 09/05/24 09/05/24 18:59 06:59 18:59 Intake Total 1080 Output Total 751 Balance 329 Weight 109.2 kg Intake: IV 960 Invasive Line 6 10 Lactated Ringers 1,000 ml 750 @ 75 mls/hr IV .[id number] MARII Rx#:[id number] Piperacillin-Tazobactam 3 100 .375 gm In Sodium Chloride 0.9% 100 ml @ 25 mls/hr IVPB Q8H MARII Rx#: [id number] metroNIDAZOLE-NS PMX 500 100 mg In Saline 1 100ml.bag @ 100 mls/hr IVPB Q8HR MARII Rx#:[id number] Oral 120 Output: Urine 750 Emesis 1 Other: Voiding Method Indwelling Catheter Toilet Urinal # Voids 3 # Bowel Movements 1 ABP, PAP, CO, CI - Last Documented Arterial Blood Pressure 55/53 - Exam No acute distress, oriented 3. The patient is currently on room air. HEENT examination is grossly unremarkable. Mucous membranes are moist. No oral lesions. Neck supple. Full range of motion. No adenopathy thyromegaly or neck vein distention. Cardiovascular examination reveals regular rhythm rate. S1-S2 normal. No S3 or S4. No discernible murmur noted. Lungs reveal clear breath sounds. Her sounds are equal bilaterally. No adventitious lung sounds including wheezes rhonchi or crackles. Abdomen soft without bowel sounds. Dressings are in place. Extremities are intact. No cyanosis clubbing or edema. Skin is without rash or lesion. Neurologic examination is brief but nonfocal. - Labs CBC & Chem 7: 09/05/24 05:20 09/05/24 05:20 Labs: Abnormal Lab Results - Last 24 Hours (Table) 09/04/24 09/04/24 09/05/24 Range/Units 09:37 23:36 05:20 WBC 10.96 H (4.50-10.00) X 10*3/uL RBC 3.96 L (4.40-5.60) X 10*6/uL Hgb 12.0 L (13.0-17.0) g/dL Hct 37.8 L (39.6-50.0) % MCHC 31.7 L (32.0-37.0) g/dL RDW 15.3 H (11.5-14.5) % Immature Gran # 0.24 H (0.00-0.04) X 10*3/uL Neutrophils # 8.11 H (1.80-7.70) X 10*3/uL Eosinophils # 0 L (0.04-0.35) X 10*3/uL Sodium (135-145) mmol/L Chloride (96-109) mmol/L BUN (9.0-27.0) mg/dL BUN/Creatinine Ratio (12.00-20.00) Ratio Glucose (70-110) mg/dL POC Glucose (mg/dL) 153 H (70-110) mg/dL Calcium (8.7-10.3) mg/dL Procalcitonin 0.53 H (0.02-0.50) ng/mL 09/05/24 09/05/24 Range/Units 05:20 06:26 WBC (4.50-10.00) X 10*3/uL RBC (4.40-5.60) X 10*6/uL Hgb (13.0-17.0) g/dL Hct (39.6-50.0) % MCHC (32.0-37.0) g/dL RDW (11.5-14.5) % Immature Gran # (0.00-0.04) X 10*3/uL Neutrophils # (1.80-7.70) X 10*3/uL Eosinophils # (0.04-0.35) X 10*3/uL Sodium 146 H (135-145) mmol/L Chloride 111 H (96-109) mmol/L BUN 29.7 H (9.0-27.0) mg/dL BUN/Creatinine Ratio 37.12 H (12.00-20.00) Ratio Glucose 124 H (70-110) mg/dL POC Glucose (mg/dL) 139 H (70-110) mg/dL Calcium 7.9 L (8.7-10.3) mg/dL Procalcitonin (0.02-0.50) ng/mL Assessment and Plan Assessment: Postop day #3, S/P exploratory laparotomy, with abdominal washout and closure. Postop day #5, S/P exploratory laparotomy with ileocecectomy. Acute kidney injury, likely secondary to sepsis, and hypotension. Acute hypoxemic respiratory failure, status post extubation, September 02, 2024. History of recent colonoscopy, August 26, 2024, complicated by nausea/vomiting, with possible aspiration. History of chronic obstructive pulmonary disease. History of type 2 diabetes mellitus. History of essential hypertension. History of gastroesophageal reflux disease. Plan: Plan dated September 03, 2024. The patient remains in the intensive care unit. He was just extubated yes terday, September 02. He is currently on 4 L nasal cannula. He is getting both Flagyl and Zosyn, as antibiotic coverage. He is getting lactated Ringer's at 75 cc an hour. An NG tube remains in place. We will continue to follow make recommendations along the way. Labs, x-rays, and all medications are reviewed. Prognosis is certainly guarded. Plan dated September 05, 2024. The patient is seen in room 472. He continues on LR at 75 cc an hour. He has been weaned off of oxygen. Yesterday he was on a couple liters. The patient was in the ICU for a number of days. He was transferred out. Labs, x-rays, and all medications are reviewed. We will continue to follow the patient, make recommendations. Prognosis is guarded. Time with Patient: Less than 30
[2024-09-05] MEDS: HEPARIN SODIUM,PORCINE 5,000 UNIT/ML 1 ML VIAL SQ SCH (15:24)
[2024-09-05 16:26] LABS: Glucose,Whole Blood 106 mg/dL (70-110)
[2024-09-05 20:18] LABS: Glucose,Whole Blood 102 mg/dL (70-110)
--- NOTE | 2024-09-05 21:48 | P.PN ---
Subjective Progress Note Date: 09/04/24 This is 69-year-old gentleman status post exploratory laparotomy with ileocecectomy secondary to cecal perforation, questionable areas of ischemia, returned to OR yesterday for exploratory laparotomy, abdominal washout with abdominal closure. Vent dependent, FiO2 50%/post 8 of PEEP. Continues on propofol, IV fluid hydration, Flagyl, Zosyn. No pressors required at this time. Mild tachycardia. Hemoglobin 13.7, platelets 185. Tmax 100.9, WBC 11.1. Renal function improving, bicarb 24, BUN 48, creatinine 1.26. Blood sugars controlled. Chest x-ray reporting stable. 09/03/2024 extubated yesterday, maintaining O2 sats of 93% on 4 L nasal cannula. Continues on IV fluid hydration, Flagyl, Zosyn. Remains n.p.o. with NG tube present. Reports mild nausea. Pain controlled. Tmax 100 axillary, WBC 11.1, hemoglobin 12.6, platelets 204. Sodium 145, potassium 4, chloride 114, bicarb 29, BUN 29, creatinine 0.95, blood sugars controlled, calcium 7.7 09/04/24 Pt seen and evaluated, vitals stable, his NG tube has been removed, he denies nausea. Objective - Vital Signs Vital signs: Vital Signs Temp 98.2 F 09/05/24 19:47 Pulse 73 09/05/24 21:16 Resp 18 09/05/24 21:16 BP 111/64 09/05/24 19:47 Pulse Ox 91 L 09/05/24 20:18 FiO2 4 09/03/24 00:00 Intake & Output 09/05/24 09/05/24 09/06/24 06:59 18:59 06:59 Other: Voiding Method Toilet # Voids 3 2 1 ABP, PAP, CO, CI - Last Documented Arterial Blood Pressure 55/53 - Exam Gen: elderly male NAD CV: RRR Lungs: CTAB Abd: soft - Labs CBC & Chem 7: 09/05/24 05:20 09/05/24 05:20 Labs: Abnormal Lab Results - Last 24 Hours (Table) 09/04/24 09/05/24 09/05/24 Range/Units 23:36 05:20 05:20 WBC 10.96 H (4.50-10.00) X 10*3/uL RBC 3.96 L (4.40-5.60) X 10*6/uL Hgb 12.0 L (13.0-17.0) g/dL Hct 37.8 L (39.6-50.0) % MCHC 31.7 L (32.0-37.0) g/dL RDW 15.3 H (11.5-14.5) % Immature Gran # 0.24 H (0.00-0.04) X 10*3/uL Neutrophils # 8.11 H (1.80-7.70) X 10*3/uL Eosinophils # 0 L (0.04-0.35) X 10*3/uL Sodium 146 H (135-145) mmol/L Chloride 111 H (96-109) mmol/L BUN 29.7 H (9.0-27.0) mg/dL BUN/Creatinine Ratio 37.12 H (12.00-20.00) Ratio Glucose 124 H (70-110) mg/dL POC Glucose (mg/dL) 153 H (70-110) mg/dL Calcium 7.9 L (8.7-10.3) mg/dL 09/05/24 Range/Units 06:26 WBC (4.50-10.00) X 10*3/uL RBC (4.40-5.60) X 10*6/uL Hgb (13.0-17.0) g/dL Hct (39.6-50.0) % MCHC (32.0-37.0) g/dL RDW (11.5-14.5) % Immature Gran # (0.00-0.04) X 10*3/uL Neutrophils # (1.80-7.70) X 10*3/uL Eosinophils # (0.04-0.35) X 10*3/uL Sodium (135-145) mmol/L Chloride (96-109) mmol/L BUN (9.0-27.0) mg/dL BUN/Creatinine Ratio (12.00-20.00) Ratio Glucose (70-110) mg/dL POC Glucose (mg/dL) 139 H (70-110) mg/dL Calcium (8.7-10.3) mg/dL Assessment and Plan Plan: Continue with current medications, advance diet per surgery. Continue with zosyn. PT, OT to evaluate
--- NOTE | 2024-09-05 22:14 | P.PN ---
Subjective Progress Note Date: 09/05/24 This is 69-year-old gentleman status post exploratory laparotomy with ileocecectomy secondary to cecal perforation, questionable areas of ischemia, returned to OR yesterday for exploratory laparotomy, abdominal washout with abdominal closure. Vent dependent, FiO2 50%/post 8 of PEEP. Continues on propofol, IV fluid hydration, Flagyl, Zosyn. No pressors required at this time. Mild tachycardia. Hemoglobin 13.7, platelets 185. Tmax 100.9, WBC 11.1. Renal function improving, bicarb 24, BUN 48, creatinine 1.26. Blood sugars controlled. Chest x-ray reporting stable. 09/03/2024 extubated yesterday, maintaining O2 sats of 93% on 4 L nasal cannula. Continues on IV fluid hydration, Flagyl, Zosyn. Remains n.p.o. with NG tube present. Reports mild nausea. Pain controlled. Tmax 100 axillary, WBC 11.1, hemoglobin 12.6, platelets 204. Sodium 145, potassium 4, chloride 114, bicarb 29, BUN 29, creatinine 0.95, blood sugars controlled, calcium 7.7 09/04/24 Pt seen and evaluated, vitals stable, his NG tube has been removed, he denies nausea. 09/05/24. Pt seen and evaluated, he is feeling better today. Hgb and Cr stable. He is working with therapy. Objective - Vital Signs Vital signs: Vital Signs Temp 98.2 F 09/05/24 19:47 Pulse 73 09/05/24 21:16 Resp 18 09/05/24 21:16 BP 111/64 09/05/24 19:47 Pulse Ox 91 L 09/05/24 20:18 FiO2 4 09/03/24 00:00 Intake & Output 09/05/24 09/05/24 09/06/24 06:59 18:59 06:59 Other: Voiding Method Toilet # Voids 3 2 1 ABP, PAP, CO, CI - Last Documented Arterial Blood Pressure 55/53 - Exam Gen: elderly male NAD CV: RRR Lungs: CTAB Abd: soft - Labs CBC & Chem 7: 09/05/24 05:20 09/05/24 05:20 Labs: Abnormal Lab Results - Last 24 Hours (Table) 09/04/24 09/05/24 09/05/24 Range/Units 23:36 05:20 05:20 WBC 10.96 H (4.50-10.00) X 10*3/uL RBC 3.96 L (4.40-5.60) X 10*6/uL Hgb 12.0 L (13.0-17.0) g/dL Hct 37.8 L (39.6-50.0) % MCHC 31.7 L (32.0-37.0) g/dL RDW 15.3 H (11.5-14.5) % Immature Gran # 0.24 H (0.00-0.04) X 10*3/uL Neutrophils # 8.11 H (1.80-7.70) X 10*3/uL Eosinophils # 0 L (0.04-0.35) X 10*3/uL Sodium 146 H (135-145) mmol/L Chloride 111 H (96-109) mmol/L BUN 29.7 H (9.0-27.0) mg/dL BUN/Creatinine Ratio 37.12 H (12.00-20.00) Ratio Glucose 124 H (70-110) mg/dL POC Glucose (mg/dL) 153 H (70-110) mg/dL Calcium 7.9 L (8.7-10.3) mg/dL 09/05/24 Range/Units 06:26 WBC (4.50-10.00) X 10*3/uL RBC (4.40-5.60) X 10*6/uL Hgb (13.0-17.0) g/dL Hct (39.6-50.0) % MCHC (32.0-37.0) g/dL RDW (11.5-14.5) % Immature Gran # (0.00-0.04) X 10*3/uL Neutrophils # (1.80-7.70) X 10*3/uL Eosinophils # (0.04-0.35) X 10*3/uL Sodium (135-145) mmol/L Chloride (96-109) mmol/L BUN (9.0-27.0) mg/dL BUN/Creatinine Ratio (12.00-20.00) Ratio Glucose (70-110) mg/dL POC Glucose (mg/dL) 139 H (70-110) mg/dL Calcium (8.7-10.3) mg/dL Assessment and Plan Plan: Continue with current medications and treatments, encourage ambulation and IS. Discharge planning for geraldine
[2024-09-05 23:22] LABS: Glucose,Whole Blood 110 mg/dL (70-110)
[2024-09-06 05:54] LABS: Glucose,Whole Blood 90 mg/dL (70-110)
--- NOTE | 2024-09-06 10:34 | CDI ---
Documentation Clarification Form Date: 09/06/2024 09:59:41 AM From: Roselia White RN CCDS Phone: [phone] Admit Date: 08/30/2024 02:41:00 PM Patient Name: Bryan Pulido Visit Number: [id number] Discharge Date: ATTENTION: The Clinical Documentation Specialists (CDI) and [facility] Coding Staff appreciate your assistance in clarifying documentation. Please respond to the clarification below the line at the bottom and electronically sign. The CDI & [facility] Coding staff will review the response and follow-up if needed. Please note: Queries are made part of the Legal Health Record. If you have any questions, please contact the author of this message via ITS. Doctor: González Pruitt The patient has Acute abdominal sepsis secondary to acute pneumoperitoneum and bowel perforation 08/31, Pulmonary Consult. Based on this information and the findings below, is there an additional diagnosis that is clinically appropriate for this patient? History/Risk Factors: 69 year old male presents to the ED as a transfer from [facility] after CT abdomen demonstrated free intraperitoneal air with diffusely dilated loops of small bowel with air-fluid levels and possible transition point within the right lower quadrant of the abdomen. The patient was taken to OR for exploratory laparotomy. Medical History: 08/26 Colonoscopy complicated by nausea, vomiting and possible aspiration hence polypectomy could not be performed. COPD/Asthma, DM2, HTN and GERD. 08/31 Pulmonary consult Clinical Indicators: WBC, 08/30 17.9; Neutrophils 08/30 15.8 Vitals signs: 08/30 B/P 110/85; HR 101; Temp 86.6F Oral; RR 18; SpO2 92% 3L nc 08/31: Pulmonary Consult: Acute kidney injury, possible acute tubular necrosis secondary to sepsis and possibly hypotension, baseline creatinine is unknown prior to this admission 08/31: Surgery note: 69 year old male POD#1 Exploratory Laparotomy, Ileocecectomy with Bowel left in Discontinuity for Cecal Perforation and Ischemic Bowel - Will Plan to Return to OR for [place] Laparotomy Saturday 09/01 Treatment: 08/30 09/04 ICU Admission Antibiotics: 08/30 Zosyn IVPB Q10H; 08/31 Flagyl IVPB Q8H; Is there an additional diagnosis that is clinically appropriate for this patient? [X ] Sepsis, present on admission [ ] Other, please specify [ ] Unable to determine SIRS Criteria: 2 or more of the following may indicate SIRS Temperature < 96.8F (36C) or > 101.0F (38.3C) Heart Rate > 90 bpm Respiratory Rate > 20 breaths/min or PaCO2 < 32 mmHg White Blood Cell Count > 12,000 or < 4,000 cells/mm3 or > 10% bands (Template Last Reviewed: October 2022) SANTANA
[2024-09-06 10:35] LABS: Basophils # (A) 0.02 X 10*3/uL (0.00-0.10); Basophils % (A) 0.2 %; Eosinophils # (A) 0 X 10*3/uL (0.04-0.35); Eosinophils % (A) 0 %; HCT 34.4 % (39.6-50.0); Lymphocytes % (A) 21.8 %; MCH 29.8 pg (27.0-32.0); MCV 93.2 FL (80.0-97.0); Mean Platelet Volume 10.9 FL (9.5-12.2); Monocytes # (A) 0.68 X 10*3/uL (0.20-1.00); Monocytes % (A) 7.4 %; NRBC Per 100 WBC 0 X 10*3/uL (0.00-0.01); Neutrophils # (A) 6.31 X 10*3/uL (1.80-7.70); Platelet Count 222 X 10*3/uL (140-440); RBC 3.69 X 10*6/uL (4.40-5.60); WBC 9.16 X 10*3/uL (4.50-10.00)
[2024-09-06 10:52] LABS: BUN/Creat Ratio 28.25 Ratio (12.00-20.00); Blood Urea Nitrogen 22.6 mg/dL (9.0-27.0); Calcium 7.7 mg/dL (8.7-10.3); Carbon Dioxide 25.7 mmol/L (21.6-31.8); Chloride 108 mmol/L (96-109); Glucose 91 mg/dL (70-110); Sodium 143 mmol/L (135-145)
[2024-09-06 11:44] LABS: Glucose,Whole Blood 129 mg/dL (70-110)
--- NOTE | 2024-09-06 13:30 | P.PN ---
Subjective Progress Note Date: 09/06/24 Patient is a 69-year-old male who initially presented on 08/30/2024 as a transfer from [facility] with complaints of abdominal pain. He had a colonoscopy on 08/26/2024 and shortly after that he began having the abdominal pain with intermittent nausea and vomiting. He had been unable to hold down any food and was having mostly liquid stools. He was noted to have WBCs 17.9. Initial ABG showed pH 7.27, pCO2 47, pO2 112. According to the patient chart CT abdomen/pelvis performed at [facility] showed free intraperitoneal air with diffusely dilated loops of small bowel with air-fluid levels consistent with acute pneumoperitoneum/acute surgical abdomen and he was subsequently transferred to [facility]. On 08/30/2024 he underwent exploratory laparotomy with ileocecectomy and was found to have eviscerated small bowel and areas of ischemic bowel. The abdomen remained open and a wound VAC was placed. 09/02/2024. Patient is being seen in the ICU for follow-up of perforated bowel. He is postop day 3 of his initial exploratory laparotomy with ileocecectomy. He underwent additional exploratory laparotomy with abdominal washout and closure yesterday. Most recent labs show WBCs 11.1, hemoglobin 13.7, sodium 141, potassium 3.6, creatinine 1.26. He is currently sedated and intubated on mechanical ventilation. Vent settings are AC mode, rate of 20, tidal volume 500, FiO2 50%, PEEP 8. He is on propofol 50 mcg/kg/min, lactated Ringer's at 75 mL/h, and Flagyl and Zosyn for empiric antibiotics. Progress note dated September 03, 2024. 69-year-old male who is seen today in the intensive care unit, room 264. The patient was extubated yesterday, September 02. Currently he is on 4 L nasal cannula. Nasogastric tube remains in place. The patient is currently getting lactated Ringer's at 75 cc an hour. He continues on Flagyl and Zosyn for his antibiotics. He is resting comfortably in bed, no distress. Current labs include a white count 11.1, hemoglobin 12.6, hematocrit 39.2, and a normal platelet count. Sodium 145, potassium 4, chlorides 114, CO2 29, BUN 29, creatinine 0.95. Glucose 100. Calcium 7.7. Progress note dated September 05, 2024. 69-year-old male seen today in room 472. The patient is doing relatively well. He is currently on lactated Ringer's at 75 cc an hour. He has been weaned off of oxygen. He is on room air. He is working with physical therapy currently. Current labs include a white count 10.9, hemoglobin 12, hematocrit 37.8, and a normal platelet count. Sodium 146, potassium 4.3, chlorides 111, CO2 27, BUN 29.7, creatinine 0.8. Glucose 124. The patient is seen today September 06, 2024 in follow-up on the regular medical floor. He is currently resting fairly comfortably in bed. Awake and alert in no acute distress. Maintaining good O2 saturations in the 90s on 2 L/min per nasal cannula. Lactated Ringer's at KVO. Sputum culture revealed no growth. White count 9.1. Hemoglobin 11.0. Platelets 222. Sodium 143. Potassium 4.0. Bicarb 26. BUN 23. Creatinine 0.8. Glucose 91. He is continued on DuoNeb inhalations, Pulmicort and performance inhalations. Antibiotics in the form of Zosyn and Flagyl. Heparin for DVT prophylaxis. Objective - Vital Signs Vital signs: Vital Signs Temp 98.4 F 09/06/24 07:20 Pulse 75 09/06/24 11:37 Resp 18 09/06/24 09:19 BP 161/91 09/06/24 07:20 Pulse Ox 93 L 09/06/24 07:51 FiO2 4 09/03/24 00:00 Intake & Output 09/05/24 09/06/24 09/06/24 18:59 06:59 18:59 Output Total 450 Balance -450 Weight 109.2 kg Output: Urine 450 Other: Voiding Method Toilet # Voids 2 1 ABP, PAP, CO, CI - Last Documented Arterial Blood Pressure 55/53 - Exam GENERAL EXAM: Alert, pleasant 69-year-old male, resting fairly comfortably in bed, on 3 L/min per nasal cannula, in no apparent distress. HEAD: Normocephalic. EYES: Normal reaction of pupils, equal size. NOSE: Clear with pink turbinates. THROAT: No erythema or exudates. NECK: No masses, no JVD. CHEST: No chest wall deformity. LUNGS: Equal air entry with no crackles, wheeze, rhonchi or dullness. CVS: S1 and S2 normal with no audible murmur, regular rhythm. ABDOMEN: Surgical incision with some slight erythema. Serosanguineous drainage on the dressing. SPINE: No scoliosis or deformity SKIN: No rashes CENTRAL NERVOUS SYSTEM: No focal deficits, tone is normal in all 4 extremities. EXTREMITIES: There is no peripheral edema. No clubbing, no cyanosis. Peripheral pulses are intact. - Labs CBC & Chem 7: 09/06/24 06:09 09/06/24 06:09 Labs: Abnormal Lab Results - Last 24 Hours (Table) 09/06/24 09/06/24 09/06/24 Range/Units 06:09 06:09 11:43 RBC 3.69 L (4.40-5.60) X 10*6/uL Hgb 11.0 L (13.0-17.0) g/dL Hct 34.4 L (39.6-50.0) % RDW 15.0 H (11.5-14.5) % Immature Gran # 0.15 H (0.00-0.04) X 10*3/uL Eosinophils # 0 L (0.04-0.35) X 10*3/uL BUN/Creatinine Ratio 28.25 H (12.00-20.00) Ratio POC Glucose (mg/dL) 129 H (70-110) mg/dL Calcium 7.7 L (8.7-10.3) mg/dL Assessment and Plan Assessment: Postop day #4, S/P exploratory laparotomy, with abdominal washout and closure Postop day #6, S/P exploratory laparotomy with ileocecectomy Acute kidney injury, likely secondary to sepsis, and hypotension Acute hypoxemic respiratory failure, status post extubation, September 02, 2024 History of recent colonoscopy, August 26, 2024, complicated by nausea/vomiting, with possible aspiration History of chronic obstructive pulmonary disease History of type 2 diabetes mellitus History of essential hypertension History of gastroesophageal reflux disease Plan: The patient was seen and evaluated Labs and medications reviewed Titrate down the FiO2 as tolerated Increase his activity as tolerated Continued on Zosyn and Flagyl Plan is for [facility] at discharge I have personally seen and examined the patient, performed the documentation and the assessment and plan as written. Number of minutes spent on the visit: 10 Dictation was produced using [employer] dictation software. Please excuse any grammatical, word or spelling errors.
[2024-09-06 13:31] VITALS: BP 143/82; RESP 17; TEMP 97.5
--- NOTE | 2024-09-06 13:58 | P.DS ---
Providers Date of admission: 08/30/24 14:41 Expected date of discharge: 09/06/24 Attending physician: González Pruitt DO Consults: 08/30/24 19:32 Consult Physician Routine Consulting Provider: Kyra Dobson Consult Reason/Comments: ICU management Do you want consulting provider notified?: Already Contacted 08/31/24 12:40 Consult Physician Routine Consulting Provider: Kevin Najera Consult Reason/Comments: Medical management Do you want consulting provider notified?: Yes Primary care physician: Aleida Najera [facility] Course: Discharge diagnosis 1. Perforated cecum status post right hemicolectomy 2. Surgical site infection Hospital course This is a 69-year-old male who was a transfer from [facility] due to abdominal pain from a bowel perforation after colonoscopy on August 26. Patient had CT scan that demonstrated free intraperitoneal air with diffusely dilated loops of small bowel with air-fluid levels and possible transition point within the right lower quadrant of the abdomen. Patient was taken to the OR by Dr. Du for exploratory laparotomy with ileocecectomy for colon perforation. He was then taken back to the OR 48 hours later for abdominal washout and abdominal closure by Dr. Santos. Patient is tolerated surgery well. His pain is controlled. He is tolerating diet. He has been up and ambulating. He has worked with physical therapy they are recommending rehab at discharge. He is afebrile. Patient has been drainage from the incision site. White count has normalized. Patient will be discharged with antibiotics to rehab. Patient is stable for discharge. Please refer to chart for any further details. Physician Rv Repairer note has been reviewed by physician. Signing provider agrees with the documented findings, assessment, and plan of care. Patient Condition at Discharge: Stable Plan - Discharge Summary New Discharge Prescriptions: New HYDROcodone/APAP 5-325MG [[place] 5-325] 1 tab PO Q6HR PRN 3 Days #12 tab PRN Reason: Pain Amoxic-Pot Clav 875-125Mg [Augmentin 875-125] 1 tab PO Q12HR 10 Days #20 tab Continue Montelukast [Singulair] 10 mg PO DAILY OXcarbazepine 300 mg PO HS Aspirin [Adult Low Dose Aspirin EC] 81 mg PO DAILY Esomeprazole Magnesium [NexIUM] 20 mg PO DAILY Tirzepatide [Mounjaro] 2.5 mg SQ WEEKLY Fluticasone Propionate 110 Mcg [Flovent 110 Mcg Inhaler] 1 puff INHALATION DIRECTED Tiotropium 2.5 Mcg/Puff [Spiriva Respimat 2.5 Mcg] 2 puff INHALATION RT-DAILY Albuterol Sulfate [Albuterol Sulfate Hfa] 2 puff INHALATION RT-Q4H PRN PRN Reason: Shortness Of Breath Fluticasone Propion/Salmeterol [Wixela 250-50 Inhub] 1 puff INHALATION RT- DAILY Atorvastatin [Lipitor] 40 mg PO DAILY lisinopriL [Zestril] 20 mg PO DAILY allopurinoL 300 mg PO DAILY Metoprolol Tartrate [Lopressor] 25 mg PO BID Escitalopram [Lexapro] 10 mg PO DAILY Ergocalciferol [Vitamin D2 (1250 Mcg = 75346 Iu)] 1,250 mcg PO WEEKLY Discharge Medication List Albuterol Sulfate [Albuterol Sulfate Hfa] 2 puff INHALATION RT-Q4H PRN 08/22/24 [History] Aspirin [Adult Low Dose Aspirin EC] 81 mg PO DAILY 08/22/24 [History] Atorvastatin [Lipitor] 40 mg PO DAILY 08/22/24 [History] Ergocalciferol [Vitamin D2 (1250 Mcg = 82001 Iu)] 1,250 mcg PO WEEKLY 08/22/24 [History] Escitalopram [Lexapro] 10 mg PO DAILY 08/22/24 [History] Esomeprazole Magnesium [NexIUM] 20 mg PO DAILY 08/22/24 [History] Fluticasone Propion/Salmeterol [Wixela 250-50 Inhub] 1 puff INHALATION RT-DAILY 08/22/24 [History] Fluticasone Propionate 110 Mcg [Flovent 110 Mcg Inhaler] 1 puff INHALATION DIRECTED 08/22/24 [History] Metoprolol Tartrate [Lopressor] 25 mg PO BID 08/22/24 [History] Montelukast [Singulair] 10 mg PO DAILY 08/22/24 [History] OXcarbazepine 300 mg PO HS 08/22/24 [History] Tiotropium 2.5 Mcg/Puff [Spiriva Respimat 2.5 Mcg] 2 puff INHALATION RT-DAILY 08/22/24 [History] Tirzepatide [Mounjaro] 2.5 mg SQ WEEKLY 08/22/24 [History] allopurinoL 300 mg PO DAILY 08/22/24 [History] lisinopriL [Zestril] 20 mg PO DAILY 08/22/24 [History] Amoxic-Pot Clav 875-125Mg [Augmentin 875-125] 1 tab PO Q12HR 10 Days #20 tab 09/06/24 [Rx] HYDROcodone/APAP 5-325MG [[place] 5-325] 1 tab PO Q6HR PRN 3 Days #12 tab 09/06/24 [Rx] Follow up Appointment(s)/Referral(s): Aleida Najera DO [Primary Care Provider] - 1-2 days Jerome Du DO [Doctor of Osteopathic Medicine] - 1 Week Activity/Diet/Wound Care/Special Instructions: No driving while taking [place] No lifting over 10 pounds You may shower. No soaking or tub baths for 2 weeks Very light activity until you are reevaluated at your follow up appointment with your surgeon Wash abdominal incision daily with soap and water. Cover incision with ABD pad and change daily or as needed. Discharge Disposition: TRANSFER TO SNF/ECF
[2024-09-06 15:33] VITALS: PULSE 74
[2024-09-06 16:48] LABS: Glucose,Whole Blood 109 mg/dL (70-110)
[2024-09-06] MEDS ORDERED: SYMBICORT 160-4.5 MCG INHALER INHALATION SCH (20:00)
== END 2024-09-06 18:02 | DRG 853 ==
LOC: EC 14:00 → 4SSUR 14:41 → 2SICU 18:36 → 4SSUR 09-04 16:42
PROVIDERS: ADMIT Surgery; ATTEND Surgery
PROC: 2W53X6Z Removal of Pressure Dressing on Abdominal Wall (ICD-10-PCS; 2024-08-30)
PROC: 0DTF0ZZ Resection of Right Large Intestine, Open Approach (ICD-10-PCS; principal; 2024-08-30 15:52)
PROC: 03HB33Z Insertion of Infusion Device into Right Radial Artery, Percutaneous Approach (ICD-10-PCS; 2024-08-31)
PROC: 3E1M38Z Irrigation of Peritoneal Cavity using Irrigating Substance, Percutaneous Approach (ICD-10-PCS; 2024-09-01)
PROC: 0HQ7XZZ Repair Abdomen Skin, External Approach (ICD-10-PCS; 2024-09-01)
DX: A41.9 Sepsis, unspecified organism (principal); G92.8 Other toxic encephalopathy; K63.1 Perforation of intestine (nontraumatic); J96.01 Acute respiratory failure with hypoxia; N17.0 Acute kidney failure with tubular necrosis; K55.9 Vascular disorder of intestine, unspecified; K66.8 Other specified disorders of peritoneum; I95.9 Hypotension, unspecified; E11.649 Type 2 diabetes mellitus with hypoglycemia without coma; I10 Essential (primary) hypertension; K21.9 Gastro-esophageal reflux disease without esophagitis; E78.5 Hyperlipidemia, unspecified; J44.89 Other specified chronic obstructive pulmonary disease; K63.5 Polyp of colon; M19.90 Unspecified osteoarthritis, unspecified site; F32.A Depression, unspecified; Z79.4 Long term (current) use of insulin; Z79.82 Long term (current) use of aspirin; Z79.899 Other long term (current) drug therapy; Z87.891 Personal history of nicotine dependence; Z79.85 Long-term (current) use of injectable non-insulin antidiabetic drugs
CPT/HCPCS: 36600; 71045; 80048; 80053; 82805; 83735; 84145; 85025; 85610; 85730; 86850; 86900; 86901; 87070; 87205; 88307; 94002; 94003; 94640; 94760; 96361; 96374; 96375; 99285